=== PATIENT | female | born 1955 | race Caucasian/White ===

== ENCOUNTER 2018-02-13 08:02 | Day surgery (SDC) | payer OTHER, SELFPAY ==
[2018-02-02 14:06] VITALS: BMI 41.9
[2018-02-13 08:22] VITALS: BP 162/95; PULSE 78; RESP 16; TEMP 36.6; O2SAT 98; BMI 42.0
--- NOTE | 2018-02-13 08:55 | OP.ENDO_ITS ---
Patient Name: Melissa Solares Procedure Date: 02/13/2018 8:31 AM Date of : 1955 Age: 62 Procedure: Upper GI endoscopy Indications: Abdominal pain in the right upper quadrant, Abnormal ultrasound of the GI tract Providers: Haja Young MD Referring MD: Haja Young MD Medicines: See the Anesthesia note for documentation of the administered medications Patient Profile: This is a 62 year old female. Refer to note in patient chart for documentation of history and physical. Complications: No immediate complications. Procedure: Pre-Anesthesia Assessment: - Prior to the procedure, a History and Physical was performed, and patient medications and allergies were reviewed. The patient's tolerance of previous anesthesia was also reviewed. The risks and benefits of the procedure and the sedation options and risks were discussed with the patient. All questions were answered, and informed consent was obtained. Prior Anticoagulants: The patient has taken no previous anticoagulant or antiplatelet agents. ASA Grade Assessment: II - A patient with mild systemic disease. After reviewing the risks and benefits, the patient was deemed in satisfactory condition to undergo the procedure. After obtaining informed consent, the endoscope was passed under direct vision. Throughout the procedure, the patient's blood pressure, pulse, and oxygen saturations were monitored continuously. The gastroscope was introduced through the mouth, and advanced to the second part of duodenum. The upper GI endoscopy was accomplished without difficulty. The patient tolerated the procedure well. Scope In: 8:48:46 AM Scope Out: 8:51:09 AM Total Procedure Duration Time 0 hours 2 minutes 23 seconds Findings: The examined esophagus was normal. No biopsies or other specimens were collected for this exam. Localized mild inflammation characterized by erythema was found in the gastric antrum. Biopsies were taken with a cold forceps for Helicobacter pylori testing. The examined duodenum was normal. No biopsies or other specimens were collected for this exam. Impression: - Normal esophagus. No specimens collected. - Gastritis. Biopsied. - Normal examined duodenum. No specimens collected. Recommendation: - Discharge patient to home. - Resume previous diet. - Continue present medications. - Await pathology results. - Repeat upper endoscopy (date not yet determined) for surveillance. - Return to my office in 1 week. Procedure Code(s): --- Professional --- 66000, Esophagogastroduodenoscopy, flexible, transoral; with biopsy, single or multiple Diagnosis Code(s): --- Professional --- K29.70, Gastritis, unspecified, without bleeding R10.11, Right upper quadrant pain R93.3, Abnormal findings on diagnostic imaging of other parts of digestive tract CPT copyright 2017 [employer]. All rights reserved. The codes documented in this report are preliminary and upon death surveys coder review may be revised to meet current compliance requirements. MD Haja Bender MD 02/13/2018 8:54:41 AM This report has been signed electronically. Number of Addenda: 0 Note Initiated On: 02/13/2018 8:31 AM
[2018-02-13 08:56] VITALS: BP 160/103; BP 162/95; PULSE 87; RESP 16; TEMP 36.8; O2SAT 95
[2018-02-13 09:00] VITALS: BP 119/79; BP 162/95; PULSE 76; RESP 16; O2SAT 93
--- NOTE | 2018-02-13 09:00 | IMM_PTH ---
PATIENT: CHULA ROSE LOC: EN U#:[id number] AGE/SX: 62/F ROOM: RE02/13/[address]: Dr. Haja Young MD : 1955 BED: DIS: 02/13/2018 SPEC #: [id number] RECD: 02/15/18 07:49 STATUS: ELIEZER RERobert #: [id number] CHUN: 02/13/18 09:[address]: Haja Young DEPT: IMMUNOHISTOCHEMISTRY RECD BY: Chapis Echeverria ENTERED: 02/15/18 07:50 SP TYPE: IMMUNO OTHR DR: Dr. Papi Catalan MD Tissues: Stomach, NOS Procedures: H Pylori (initial) PHYSICIAN & INSTITUTION [place] [id number] SPECIMEN INFORMATION: Tissue Source: Gastric antrum Clinical Info: Right upper quadrant abdominal pain Specimen Number: [id number] CPT code: 60611 METHODOLOGY: Deparaffinized sections of prefer/formalin-fixed tissue or PAP/DQ stained slides are incubated with monoclonal/polyclonal antibodies/oligonucleotide probes. Localization is made via biotin free immunoperoxidase method. Appropriate controls are performed and reacted as expected. Results on target cell population are indicated in the following table: RESULTS: ANTIBODY / CLONE RESULT H Pylori (polyclonal) negative These tests were developed and their performance characteristics determined by [facility]. They may not have been cleared or approved by the U.S. Food and Drug Administration. The FDA has determined that such clearance or approval is not necessary. INTERPRETATION: Gastric antrum, biopsy: Negative for Helicobacter pylori organisms. SJ:shane 02/15/18
--- NOTE | 2018-02-13 09:00 | GASB_PTH ---
PATIENT: CHULA ROSE LOC: EN U#:[id number] AGE/SX: 62/F ROOM: RE02/13/[address]: Dr. Haja Young MD : 1955 BED: DIS: 02/13/2018 SPEC #: [id number] RECD: 02/13/18 09:09 STATUS: ELIEZER WILY #: [id number] CHUN: 02/13/18 09:[address]: Haja Young DEPT: SURGICAL PATHOLOGY RECD BY: Darryl Starr ENTERED: 02/13/18 11:54 SP TYPE: Gastric Bx OTHR DR: Dr. Papi Catalan MD Tissues: Gastric mucous membrane Procedures: Surgery Specimen Level IV HEADER OPERATION: EGD ([facility] [place]) PRE-OP DIAGNOSIS: Right upper quadrant abdominal pain TISSUE SUBMITTED: Gastric antrum, H. pylori and path MICROSCOPIC DIAGNOSIS Gastric antrum, biopsy: Mild gastritis. See microscopic description and comment. SJ:shane 02/15/18 COMMENT The results of immunohistochemistry for Helicobacter pylori will be reported separately ([id number]). MICROSCOPIC DESCRIPTION Slides are reviewed. The specimen shows fragments of gastric mucosa with chronic inflammatory cell infiltrates in the lamina propria consisting of lymphocytes and plasma cells, consistent with mild chronic gastritis. GROSS DESCRIPTION Received in fixative is one container labeled with the patient's name and designated gastric antrum. The specimen consists of two irregular fragments of light bassett soft tissue that in aggregate measure 0.3 x 0.2 x 0.1 cm. The specimen is totally submitted in one cassette. / AM:shane 02/13/18 TC:3 CPT: 51636
[2018-02-13 09:05] VITALS: BP 145/87; BP 162/95; PULSE 77; RESP 16; O2SAT 95
[2018-02-13 09:15] VITALS: BP 153/90; BP 162/95; PULSE 74; RESP 16; TEMP 36.6; O2SAT 95
[2018-02-13 09:34] VITALS: BP 162/95
== END 2018-02-13 09:51 | disposition home or self-care (01) ==
LOC: EN 08:02 → AC 08:03
PROVIDERS: Family Provider Family Medicine; PCP Family Medicine; Referring Provider Surgery; Visit Provider Surgery
PROC: 0DJ08ZZ Inspection of Upper Intestinal Tract, Via Natural or Artificial Opening Endoscopic (ICD-10-PCS; CPT 43235; principal; 2018-02-13 08:55)
DX: K29.70 Gastritis, unspecified, without bleeding (principal); K82.4 Cholesterolosis of gallbladder; K21.9 Gastro-esophageal reflux disease without esophagitis; E66.01 Morbid (severe) obesity due to excess calories; Z68.41 Body mass index [BMI] 40.0-44.9, adult; M06.4 Inflammatory polyarthropathy; I10 Essential (primary) hypertension; Z85.42 Personal history of malignant neoplasm of other parts of uterus; Z86.73 Personal history of transient ischemic attack (TIA), and cerebral infarction without residual deficits; Z79.82 Long term (current) use of aspirin; Z79.899 Other long term (current) drug therapy
CPT/HCPCS: 43239; 88305; 88342; J7120

== ENCOUNTER 2018-03-03 14:47 | Emergency (ER) | payer OTHER, SELFPAY ==
[2018-03-03 14:48] VITALS: BP 193/113; PULSE 101; RESP 18; TEMP 36.3; O2SAT 97; BMI 41.3
--- NOTE | 2018-03-03 15:04 | EKG12_ITS ---
Test Reason : PALPS Blood Pressure : / mmHG Vent. Rate : 088 BPM Atrial Rate : 088 BPM P-R Int : 144 ms QRS Dur : 078 ms QT Int : 354 ms P-R-T Axes : 054 006 035 degrees QTc Int : 428 ms Sinus rhythm with Premature atrial complexes Otherwise normal ECG Confirmed by ALEXEY ESPINO, YOAN ([id number]), supervising film or videotape editor VICKEY ELENA ([id number]) on 03/06/2018 9:44:19 AM Referred By: MARGY Confirmed By:YOAN BLACKBURN MD
--- NOTE | 2018-03-03 15:10 | RAD_ITS ---
STUDY: X-RAY CHEST REASON FOR EXAM: Female, 62 years old. Palpitations. TECHNIQUE: Single AP portable view of the chest. COMPARISON: Comparison is made with prior study dated May 05, 2015. FINDINGS: EKG electrodes are seen. The lungs are clear and expanded. Scattered calcified granuloma. There is no demonstrated pleural abnormality. Normal size heart. Normal mediastinum and forrest. Normal visualized pulmonary arteries. Normal visualized aortic arch and descending thoracic aorta. There are degenerative changes of the visualized thoracic spine. Normal visualized ribs, clavicles, and shoulders. There is no demonstrated abnormality of the visualized soft tissue structures of the upper abdomen. RAD/Chest 1 View (Portable) IMPRESSION: Normal x-ray examination of the chest. Electronically Signed: Semaj Begum MD at 15:29 EST Tel [phone], Service support ,
--- NOTE | 2018-03-03 15:10 | ED.VISSUMM ---
- ER Visit Summary Date of Service: 03/03/18 Chief Complaint: Palpitations History of Present Illness: The patient is a 62 F history of hypertension. No prior thyroid disease. Chest pain. She denies any significant shortness of breath. Week. She denies any fever. She denies any nausea, vomiting, diarrhea or melena. Physical Examination:. Pulse ox is 97% on room air. H EENT exam unremarkable. Neck nontender. Lungs clear to auscultation bilaterally. Heart regular rate and rhythm rate about 95. She does have an occasional PAC's on the monitor. No murmur. Abdomen soft and nontender. Normal bowel sounds. No peritoneal signs. Moving all 4 extremities. Calves nontender without edema. Neurologically she is awake alert with no focal motor deficits. Test Results: Chest x-ray one view portable no acute abnormality read both by myself the radiologist. EKG sinus rhythm rate of 88 with PACs. CBC normal with a white count 8. Hemoglobin 13. Chemistries normal with normal creatinine and gap. Troponin normal. Emergency Department Course and Treatment: Patient undergo cardiac workup. Treatment Plan: Repeat exam patient is doing well at 1549. Currently symptom-free. Discharged home. Follow-up as an outpatient. Disposition: Discharge Impression: Acute palpitations secondary to premature atrial contractions This note was generated with [employer] dictation software. It may contain incorrect words, spelling, and punctuation that were not noted in review of the chart prior to signing ED Disposition - Plan for ED Patient: Chief Complaint: Palpitations Referrals: Papi Catalan MD [Primary Care Provider] -
[2018-03-03 15:12] VITALS: O2SAT 100
--- NOTE | 2018-03-03 15:13 | ED.DCSUM_ITS ---
- ER Visit Summary Date of Service: 03/03/18 Chief Complaint: Palpitations History of Present Illness: The patient is a 62 F history of hypertension. No prior thyroid disease. Chest pain. She denies any significant shortness of breath. Week. She denies any fever. She denies any nausea, vomiting, diarrhea or melena. Physical Examination:. Pulse ox is 97% on room air. H EENT exam unremarkable. Neck nontender. Lungs clear to auscultation bilaterally. Heart regular rate an d rhythm rate about 95. She does have an occasional PAC's on the monitor. No murmur. Abdomen soft and nontender. Normal bowel sounds. No peritoneal signs. Moving all 4 extremities. Calves nontender without edema. Neurologically she is awake alert with no focal motor deficits. Test Results: Chest x-ray one view portable no acute abnormality read both by myself the radiologist. EKG sinus rhythm rate of 88 with PACs. CBC normal with a white count 8. Hemoglobin 13. Chemistries normal with normal creatinine and gap. Troponin normal. Emergency Department Course and Treatment: Patient undergo cardiac workup. Treatment Plan: Repeat exam patient is doing well at 1549. Currently symptom- free. Discharged home. Follow-up as an outpatient. Disposition: Discharge Impression: Acute palpitations secondary to premature atrial contractions This note was generated with [employer] dictation software. It may contain incorrect words, spelling, and punctuation that were not noted in review of the chart prior to signing ED Disposition - Plan for ED Patient: Chief Complaint: Palpitations Referrals: Papi Catalan MD [Primary Care Provider] -
[2018-03-03 15:21] LABS: Absolute Lymphocyte Count 2.53 X10^3/ul (0.83-4.51); Absolute Neutrophil Count 4.9 X10^3/uL (2.0-7.7); Basophil# 0.04 X10^3/uL; Basophil% 0.5 % (0-1); Eosinophil# 0.15 X10^3/uL; Eosinophils% 1.8 % (0-5); Hematocrit 42.1 % (37-47); Hemoglobin 13.2 g/dl (12.0-15.0); Lymphocyte # 2.53 X10^3/ul (4.0); Lymphocyte % 29.6 % (19-41); Mean Corp Hgb Conc 31.4 g/gl (32-36); Mean Corpuscular Hgb 27.6 pg (27.0-32.0); Mean Corpuscular Volume 88.1 fL (81-99); Mean Platelet Vol. 10.6 fl (6.2-12.0); Monocyte# 0.86 X10^3/uL; Monocyte% 10.1 % (0-10); Neutrophil # 4.94 X10^3/uL (2.7-7.7); Neutrophil % 57.8 % (47-70); Platelet Count 339 K/mm3 (150-450); RBC Distribution Width CV 13.6 % (11.6-14.6); RBC Distribution Width SD 43.7 fl (35.1-43.9); Red Blood Count 4.78 M/mm3 (4.2-5.4); White Blood Count 8.5 K/mm3 (4.4-11.0)
[2018-03-03 15:22] LABS: POSITIVE COUNT NO; POSITIVE DIFFERENTIAL NO; POSITIVE MORPHOLOGY NO
[2018-03-03 15:37] LABS: Anion Gap 8 (5-15); BUN 20 mg/dL (7-18); BUN/Creat Ratio 23.6 RATIO (10-20); Calcium,Total 8.3 mg/dL (8.5-10.1); Chloride 106 mmol/L (98-107); Creatinine, Serum 0.85 mg/dL (0.55-1.02); EST Glomerular Filtration Rate 72 mL/min (>60); Est Glom Filt Rate - Afr Amer 87 mL/min (>60); Estimated Creatinine Clearance 62.59 ml/min; Glucose 93 mg/dL (74-106); Potassium 3.8 mmol/L (3.5-5.1); Sodium Level 141 mmol/L (136-145)
--- NOTE | 2018-03-03 15:51 | ED.DEP ---
ED Disposition - Plan for ED Patient: Disposition: Home or Assisted Living Chief Complaint: Palpitations Instructions: ED Palpitations Referrals: Papi Catalan MD [Primary Care Provider] - As Needed Additional Instructions: Your palpitations are caused by premature atrial beats. All your labs, EKG and chest x-ray were normal. Follow-up with your primary care physician as needed.
[2018-03-03 16:12] VITALS: BP 146/106; PULSE 89; RESP 16; O2SAT 96
--- NOTE | 2018-03-03 16:12 | ED.RN ---
pt given written and verbal discharge instructions and home going instructions. pt signs permission for release of information for lab results. pt verbalizes understanding and denies any further questions. pt iv d/c and covered with 2x2 gauze and paper tape. pt dresses self and ambulates out of dept with any assistance needed. pt to return to ed for any new or worsened sx, and follow up with primary doctor.
--- OUTSIDE RECORDS SUMMARY | 2018-05-08 05:35 | XMS RPT_ITS ---
:1955 Author Organization [place] Support Name Relationship Address Phone [employer] Unavailable [address] + [place] [address] BLAZE ROSE Unavailable [address] + [place] [address] MILTON RUSSEL Unavailable Unavailable + [place] [address] [employer] Unavailable [address] + [place] [address] BLAZE ROSE Unavailable [address] + [place] [address] LULUMARIMAR, RUSSEL Unavailable Unavailable + [place] [address] [employer] Unavailable [address] + [place] [address] BLAZE ROSE Unavailable [address] + [place] [address] MILTON, RUSSEL Unavailable Unavailable + [place] [address] [employer] Unavailable [address] + [place] [address] BLAZE ROSE Unavailable [address] + [place] [address] BLAZE ROSE Unavailable Unavailable + BLAZE ROSE Unavailable Unavailable + BLA[place] ROSE Unavailable Unavailable Unavailable CHRISTINA ROSE Unavailable Unavailable Unavailable VANNESA ROSEE Unavailable [address] + [place] [address] [employer] Unavailable [address] + [place] [address] BLAZE ROSE Unavailable [address] + [place] [address] [employer] Unavailable [address] + [place] [address] BLA[place] ROSE Unavailable [address] + [place] [address] [employer] Unavailable Unavailable Unavailable BLAZE ROSE Unavailable Unavailable + [employer] Unavailable [address] + [place] [address] BLAZE ROSE Unavailable [address] [phone] [place] [address] BLAZE ROSE Unavailable Unavailable Unavailable GONGMARIMAR CHRISTINA Unavailable Unavailable Unavailable GONGVANNESA MINAYAE Unavailable [address] + [place] [address] CONTACTS, NO Unavailable Unavailable + [employer] Unavailable [address] + [place] [address] BROOKSLaurenBLAZE MINAYA Unavailable [address] [phone] [place] [address] Care Team Providers Name Role Phone Haja Young Attending Unavailable GOMES, DANIE O Referring Unavailable Haja Young Attending Unavailable Haja Young Referring Unavailable GOMES, DANIE O Primary Care Unavailable Haja Young Attending Unavailable GOMES, DANIE Jolene Primary Care Unavailable Johnnie Velarde Attending Unavailable Devonkarus, Jimmie Attending Unavailable GOMES, DANIE Jolene Primary Care Unavailable Isckarus, Mansour Referring Unavailable Isckarus, Mansour Attending Unavailable GOMES, DANIE O Primary Care Unavailable Isckarus, Mansour Consulting Unavailable Lashanda Fernandes Attending Unavailable GOMES, DANIE O Referring Unavailable Isckarus, Mansour Attending Unavailable GOMES, DANIE O Primary Care Unavailable Pio, Mansour Consulting Unavailable DOT RIZZO Attending Unavailable GOMES, DANIE Primary Care Unavailable BLAZE THAPA Referring Unavailable DOT RIZZO Attending Unavailable GOMES, DANIE Primary Care Unavailable BLAZE THAPA Referring Unavailable DOT DOTY Attending Unavailable GABRIELLE OCONNELL Attending Unavailable DANIE GOMES Primary Care Unavailable DANIE GOMES Admitting Unavailable DOT DOTY Attending Unavailable DANIE GOMES Referring Unavailable GOMES DANIE PETER Primary Care Unavailable REZA OLIVERA Attending Unavailable REZA OLIVERA Referring Unavailable REZA OLIVERA Attending Unavailable Dr. Dot Doty Admitting Unavailable Dr. Dot Doty Attending Unavailable Arturo, Sakina Do Attending Unavailable Gomes, Danie Primary Care Unavailable Muskegon, Sakina D Admitting Unavailable [place], Sakina D Admitting Unavailable Arturo, Sakina D Attending Unavailable Gomes, Danie Primary Care Unavailable Arturo, Sakina D Admitting Unavailable [place], Sakina D Attending Unavailable Gomes, Danie Primary Care Unavailable Jose Juan Fraire Admitting Unavailable Jose Juan Fraire Attending Unavailable Gomes, Danie Primary Care Unavailable Gomes, Danie Attending Unavailable Gomes, Danie Primary Care Unavailable Gomes, Danie Admitting Unavailable Gomes, Danie Attending Unavailable Gomes, Danie Primary Care Unavailable Gomes, Danie Admitting Unavailable Gomes, Danie Admitting Unavailable Gomes, Danie Attending Unavailable Gomes, Danie Primary Care Unavailable Gomes, Danie Attending Unavailable Gomes, Danie Primary Care Unavailable Gomes, Danie Admitting Unavailable Gomes, Danie Attending Unavailable Gomes, Danie Primary Care Unavailable Gomes, Danie Consulting Unavailable Gomes, Danie Attending Unavailable Gomes, Danie Primary Care Unavailable Gomes, Danie Admitting Unavailable Gomes, Danie Attending Unavailable Gomes, Danie Primary Care Unavailable Gomes, Danie Primary Care Unavailable Gomes, Danie Admitting Unavailable Gomes, Danie Attending Unavailable PROBLEMS PROBLEMS DATE TYPE CONDITION / CODE ATTENDING STATUS SOURCE 02/27/2018 Unknown R10.11 - Right Haja Young Active [facility] upper quadrant pain Community / R10.11(ICD-10) Hospital Repository 02/27/2018 Unknown R93.3 - Abnormal Haja Young Active [facility] findings on Community diagnostic imaging Hospital of other parts of Repository digestive tract / R93.3(ICD-10) 02/27/2018 Unknown K29.70 - Gastritis, Haja Young Active [facility] unspecified, Community without bleeding / Hospital K29.70(ICD-10) Repository 12/09/2017 Admitting Follow-up / 145() DOT RIZZO Active [place] [facility] Repository 12/09/2017 Admitting Endometrial Cancer O'DOT COVARRUBIAS [facility] State diagnosis / 334() [facility] Repository 12/07/2017 Unknown C54.1 - Malignant Isckarus, Active [facility] neoplasm of [facility] endometrium / Hospital C54.1(ICD-10) Repository 11/17/2017 Admitting Encounter for CATHYDNICKDOT [facility] One diagnosis general adult FR[facility]COISE Repository medical examination without abnormal findings / Z00.00(ICD-10) 11/17/2017 Admitting Pain in unspecified STADNICK [facility] diagnosis foot / [place] Three M79.673(ICD-10) Repository 11/17/2017 Admitting Other chronic pain CATHYDNICKDOT [facility] diagnosis / G89.29(ICD-10) [place] Three Repository 11/17/2017 Admitting Other specified STADNICK, DOT [facility] diagnosis abnormal FRANCOISE Three immunological Repository findings in serum / R76.8(ICD-10) 11/17/2017 Admitting Myalgia, STADNICK, DOT [facility] diagnosis unspecified site / FRANCOISE Three M79.10(ICD-10) Repository 11/17/2017 Admitting Sicca syndrome, CATHYDNICK, DOT [facility] diagnosis unspecified / FRANCOISE Three M35.00(ICD-10) Repository PROCEDURES PROCEDURES No Procedure Records FoundRESULTS RESULTS 12 LEAD ELECTROCARDIOGRAM Observed: 03/06/2018 Status: F Source: [place] 9:44 AM [facility] REPOSITORY [facility] Cardiovascular Services [address] [place] [address] 12 Lead EKG 03/03/18 1459 MR#: [id number] Acct: [id number] Name: MELISSA ROSE Rep #: [id number] : 1955 62 From: Kieran Ruiz MD Attending Dr: Status: DEP ER Ordering Dr: Johnnie Velarde MD Date: 03/03/18 Location: ED Sex: F C Admitted: Test Reason : PALPS Blood Pressure : / mmHG Vent. Rate : 088 BPM Atrial Rate : 088 BPM P-R Int : 144 ms QRS Dur : 078 ms QT Int : 354 ms P-R-T Axes : 054 006 035 degrees QTc Int : 428 ms Sinus rhythm with Premature atrial complexes Otherwise normal ECG Confirmed by KIERAN RUIZ MD ([id number]), avid editor VICKEY ELENA ([id number]) on 03/06/2018 9:44:19 AM Referred By: MARGY Confirmed By:KIERAN RUIZ MD 03/06/18 0944 Date Kieran Ruiz MD CC: Johnnie Velarde MD; Danie Gomes MD Signed DISCHARGE INSTRUCTION Observed: 03/04/2018 Status: F Source: [place] 12:00 AM [facility] Medical Records Department [address] [place] [address] Discharge Instruction 03/03/18 1551 MR#: [id number] Acct: [id number] Name: MELISSA ROSE Rep #: [id number] : 1955 62 From: Johnnie Velarde MD PCP: Danie Gomes MD Status: DEP ER ED Disposition - Plan for ED Patient: Disposition: Home or Assisted Living Chief Complaint: Palpitations Instructions: ED Palpitations Referrals: Danie Gomes MD [Primary Care Provider] - As Needed Additional Instructions: Your palpitations are caused by premature atrial beats. All your labs, EKG and chest x-ray were normal. Follow-up with your primary care physician as needed. What to do if you have Problems For any increased pain, shortness of breath, bleeding, nausea or vomiting, chest pain, or any unexpected problems, contact your Primary Care Provider. Call [facility] ([phone]) or report to the closest Emergency Room. Call 911 if necessary. 03/04/18 0000 <Electronically signed by Johnnie Velarde MD> Date Johnnie Velarde MD Cosigner Signature (If Indicated): Date CC: Danie Gomes MD EMERGENCY DEPARTMENT Observed: 03/04/2018 Status: F Source: [place] 12:00 AM [facility] REPOSITORY [facility] Medical Records Department [address] [place] [place] [address] Emergency Department Summary 03/03/18 1510 MR#: [id number] Acct: [id number] Name: MELISSA ROSE Rep #: [id number] : 1955 62 From: Johnnie Velarde MD PCP: Danie Gomes MD Status: DEP ER - ER Visit Summary Date of Service: 03/03/18 Chief Complaint: Palpitations History of Present Illness: The patient is a 62 F history of hypertension. No prior thyroid disease. Chest pain. She denies any significant shortness of breath. Week. She denies any fever. She denies any nausea, vomiting, diarrhea or melena. Physical Examination:. Pulse ox is 97% on room air. H EENT exam unremarkable. Neck nontender. Lungs clear to auscultation bilaterally. Heart regular rate and rhythm rate about 95. She does have an occasional PAC's on the monitor. No murmur. Abdomen soft and nontender. Normal bowel sounds. No peritoneal signs. Moving all 4 extremities. Calves nontender without edema. Neurologically she is awake alert with no focal motor deficits. Test Results: Chest x-ray one view portable no acute abnormality read both by myself the radiologist. EKG sinus rhythm rate of 88 with PACs. CBC normal with a white count 8. Hemoglobin 13. Chemistries normal with normal creatinine and gap. Troponin normal. Emergency Department Course and Treatment: Patient undergo cardiac workup. Treatment Plan: Repeat exam patient is doing well at 1549. Currently symptom-free. Discharged home. Follow-up as an outpatient. Disposition: Discharge Impression: Acute palpitations secondary to premature atrial contractions This note was generated with Sunshineation software. It may contain incorrect words, spelling, and punctuation that were not noted in review of the chart prior to signing ED Disposition - Plan for ED Patient: Chief Complaint: Palpitations Referrals: Danie Gomes MD [Primary Care Provider] - What to do if you have Problems For any increased pain, shortness of breath, bleeding, nausea or vomiting, chest pain, or any unexpected problems, contact your Primary Care Provider. Call [facility] ([phone]) or report to the closest Emergency Room. Call 911 if necessary. 03/04/18 0000 <Electronically signed by Johnnie Velarde MD> Date Johnnie Velarde MD Cosigner Signature (If Indicated): Date CC: Danie Gomes MD CBC W/DIFF, AUTOMATED Collected: 03/03/2018 Status: F Source: [place] 3:10 PM [facility] REPOSITORY TYPE CODE TESTS RESULT OUT OF RANGE REFERENCE UNITS LAB L100.1000 4.4-11.0 K/mm3 Normal WBC 8.5 LAB L100.1200 4.2-5.4 M/mm3 Normal RBC 4.78 LAB L100.1300 12.0-15.0 g/dl Normal HGB 13.2 LAB L100.1400 37-47 % Normal HCT 42.1 LAB L100.1500 81-99 fL Normal MCV 88.1 LAB L100.1600 27.0-32.0 pg Normal MCH 27.6 LAB L100.1700 32-36 g/gl Low MCHC 31.4 LAB L100.1810 11.6-14.6 % Normal RDW CV 13.6 LAB L100.1820 35.1-43.9 fl Normal RDW SD 43.7 LAB L100.1900 150-450 K/mm3 Normal PLT 339 LAB L100.2000 6.2-12.0 fl Normal MPV 10.6 LAB L100.2100 47-70 % Normal NEUT% 57.8 LAB L100.2200 19-41 % Normal LY% 29.6 LAB L100.2300 0-10 % High MONO% 10.1 LAB L100.2400 0-5 % Normal EO% 1.8 LAB L100.2500 0-1 % Normal BASO% 0.5 LAB L100.2550 0.0-0.9 % Normal IM GRAN % 0.200 Result Comment: IG% - Immature Granulocytes (promyelocytes, myelocytes and metamyelocytes) > 1% indicates that a LEFT SHIFT is Present. LAB L100.2620 2.0-7.7 X10 3/uL Normal Absolute Neut 4.9 LAB L100.2720 0.83-4.51 X10 3/ul Normal Absolute Lymph 2.53 Performed By: #### L100.0100 #### [facility] [address] [place], [place], [address] BASIC METABOLIC Collected: 03/03/2018 Status: F Source: [place] PROFILE (BMP) 3:10 PM [facility] REPOSITORY TYPE CODE TESTS RESULT OUT OF RANGE REFERENCE UNITS LAB L501.0100 74-106 mg/dL Normal GLU 93 Result Comment: Please note revised GLUCOSE reference range effective 2017. LAB L501.1000 7-18 mg/dL High BUN 20 LAB L501.1100 0.55-1.02 mg/dL Normal CREAT,SERUM 0.85 Result Comment: The validity of the calculated GFR AND GFRAA in patients over 70 years has not been determined. Clinical correlation is essential. LAB L501.1110 >60 mL/min Normal EST GFR 72 Result Comment: Non- GFR Calc LAB L501.1115 >60 mL/min Normal EST GFR - AA 87 Result Comment: GFR Calc LAB L501.1255 ml/min Normal Estimated CRCL 62.59 LAB L501.1300 10-20 RATIO High BUN/CRE 23.6 LAB L501.2200 8.5-10 mg/dL Low .1 CA 8.3 LAB L501.5300 136-14 mmol/L Normal 5 NA 141 LAB L501.5600 3.5-5. mmol/L Normal 1 K 3.8 LAB L501.5900 98-107 mmol/L Normal CL 106 LAB L501.6100 21.0-3 mmol/L Normal 2.0 CO2 27.0 LAB L501.6200 5-15 Normal GAP 8 Performed By: #### L500.2500, L501.4010 #### [facility] [address] [place], [address] TROPONIN-I Collected: 03/03/2018 Status: F Source: [place] 3:10 PM [facility] REPOSITORY TYPE CODE TESTS RESULT OUT OF RANGE REFERENCE UNITS LAB L501.4010 <0.045 ng/mL Normal < 0.015 TROPONIN-I Result Comment: TROPONIN-I EXPECTED VALUES <0.045 Negative 0.045 - 0.590 Consistent with Cardiac Damage > OR = 0.600 Critical Value Not every elevated troponin is indicative of HI. These values should be used with clinical judgement in examining the patient's clinical picture for diagnosis. To establish a diagnosis of HI versus myocardial injury, there must be a demonstrated rise and/or fall in the troponin values, in addition to ischemic symptoms, EKG changes, new regional wall motion abnormality, and/or angiographical evidence. PLEASE NOTE: REFERENCE RANGES EDITED 17 Performed By: #### L500.2500, L501.4010 #### [facility] [address] [place], [address] CHEST 1 VIEW Observed: 03/03/2018 Status: F Source: [place] (PORTABLE) 3:05 PM [facility] REPOSITORY [facility] Imaging Services [address] [facility] [place] [address] Chest 1 View (Portable) MR#: [id number] Acct: [id number] Name: MELISSA ROSE Rep #: [id number] : 1955 F 62 From: Semaj Begum MD PCP: Danie Gomes MD Status: PRE ER Study: Chest 1 View (Portable) Date of Exam: 03/03/18 Exam# [id number] Ordering Dr: Johnnie Velarde MD STUDY: X-RAY CHEST REASON FOR EXAM: Female, 62 years old. Palpitations. TECHNIQUE: Single AP portable view of the chest. COMPARISON: Comparison is made with prior study dated May 05, 2015. FINDINGS: EKG electrodes are seen. The lungs are clear and expanded. Scattered calcified granuloma. There is no demonstrated pleural abnormality. Normal size heart. Normal mediastinum and forrest. Normal visualized pulmonary arteries. Normal visualized aortic arch and descending thoracic aorta. There are degenerative changes of the visualized thoracic spine. Normal visualized ribs, clavicles, and shoulders. There is no demonstrated abnormality of the visualized soft tissue structures of the upper abdomen. RAD/Chest 1 View (Portable) IMPRESSION: Normal x-ray examination of the chest. Electronically Signed: Semaj Begum MD at 15:29 EST Tel [phone], Service support , CC: Johnnie Velarde MD; Danie Gomes MD Server Systems Administrator: Signed PROGRESS Observed: 02/27/2018 Status: COMPLETED Source: [place] 3:00 PM [facility] [place] REPOSITORY HNO ID: [id number] Author: Reza Olivera Service: (none) Author Type: Physician Type: Progress Notes Filed: 02/27/2018 3:35 PM Note Text: [facility] FOLLOW-UP EVALUATION The consultation is entered using voice recognition technology and may contain inaccurate syntax or word sense. Referring: Self Subjective: 62-year-old with a primary complaint of low back pain (lower extremity symptoms have resolved in entirety, on gabapentin 300 mg twice a day; side effects develop with dosages above this) and a lesser complaint of fairly diffuse neck and back pain and bilateral foot pain (the above chronic). The patient has utilized meloxicam with modest and a fit, no reported side effects. She denies specific motor or sensory changes. She denies recent slip and fall or under injuries. A limited home exercise program is performed mainly consisting of stretching. Imaging: IMPRESSION: 1. ?Multilevel degenerative disc, bone and facet changes with moderate left foraminal compromise at L3/4 and L4/5. ?Overall appearance essentially unchanged when compared to previous examination of Server Systems Administrator: JOSELYN ? Transcribe Date/Time: Jun 25 2016 12:41P Dictated by : JANESSA ROY MD This examination was interpreted and the report reviewed and electronically signed by: JANESSA ROY MD on Jun 25 2016 12:52PM ?EST Results-Findings * * *Final Report* * * DATE OF EXAM: Jun 25 2016 12:30PM ? WRM ? 0303 ?- ?MRI LUMBAR SPINE WO IVCON ?/ PROCEDURE REASON: multiple diagnoses ?? ? * * * * Physician Interpretation * * * * RESULT: HISTORY: ?Low back pain unresponsive to conservative management, history of uterine malignancy COMPARISON: Today's study is compared to previous exam of 01/27/2009 EXAMINATION: Routine lumbosacral spine protocol without gadolinium. RESULTS: Counting reference: ?Lumbosacral junction. ?For the purposes of this report, L5S1 is considered the last lumbar type disc space. Alignment: ? ?There is minimal retrolisthesis of L2 on L3.. Bone marrow signal/fracture: ? ? ? No evidence of pathologic marrow infiltration. ?No evidence of prior fracture. Conus: ? ?The conus is within normal limits of signal intensity and morphology. ?The conus terminates normally at L1. Paraspinal soft tissues: ? ?Paraspinal soft tissues are unremarkable. Lower thoracic spine: ?Visualized lower thoracic canal and foramina are patent. Incidental note is made of several cystlike masses associated with both kidneys. ?For those most likely represent benign renal cysts, they are not fully characterized by this study. ?In addition, there is a small cystlike mass associated with the liver appreciated on the haste image. ? This is less than a centimeter in size and too small to characterize. L1-L2: ? ?There is broad-based degenerative disc bulging. ?Canal and foramina are patent. L2-L3: ? ?There is broad-based degenerative disc bulging. ?There are bilateral degenerative facet changes. ?Canal and foramina are patent. L3-L4: ? ?There is broad-based degenerative disc bulging. ?There are bilateral degenerative facet changes. ?There is mild right and moderate left foraminal compromise. ?Dimensions of the central canal are adequate. L4-L5: ? ?There is broad-based degenerative disc bulging. ?There are bilateral degenerative facet changes. ?There is mild right and moderate left foraminal compromise. ?There is mild central canal narrowing. L5-S1: ? ?There is marked degenerative disc space narrowing. ?There is mild broad-based disc bulging with a shallow broad-based central disc protrusion superimposed. ?There is bony osteophytosis of the vertebral body margins. ?Canal and foramina are patent. Sacrum and iliac wings: ? ?Visible sacrum and iliac wings are normal. ? Presacral soft tissues within normal limits. ? ? IMPRESSION: Degenerative changes involving the lower lumbar spine, most significant at the L5-S1 level. Server Systems Administrator: PSCB ? Transcribe Date/Time: Dec ?5:21P Dictated by : CHRISTOPHER BURNS MD This examination was interpreted and the report reviewed and electronically signed by: CHRISTOPHER BURNS MD on Dec ?5:23PM ?EST Results-Findings * * *Final Report* * * DATE OF EXAM: Dec ?2:50PM ? STX ? 1446 ?- ?XR LUMBAR AP/LAT/OBL/L5S1 ?/ PROCEDURE REASON: multiple diagnoses ?? ? * * * * Physician Interpretation * * * * RESULT: Examination: ?XR LUMBAR AP/LAT/OBL/L5S1 12/24/2015 History: ? lower back pain Spondylosis without myelopathy or radiculopathy, lumbosacral region Radiculopathy, site unspecified Technique: ? XR LUMBAR AP/LAT/OBL/L5S1 -- NOT APPLICABLE ? ? with 5 views on 5 images Comparison: None available RESULT: There are 5 lumbar type vertebral bodies. No acute fracture or traumatic malalignment. There is narrowing of the intervertebral disc space at the L5-S1 level and to a lesser extent the L4-L5 level. The remaining intervertebral disc spaces and vertebral body heights are maintained. The pedicles are preserved on the frontal view. The sacroiliac joints are intact bilaterally. OARRS Report: Reviewed Pain Panel/Toxicology Available: No ALLERGIES: Adhesive; Latex; Sulfa (Sulfonamide Antibiotics) Current Outpatient Medications: Current Outpatient Prescriptions: gabapentin (NEURONTIN) 600 mg tablet 1/2 tablet at HS for 4 days then increase to1/2 tablet BID for 4 days then increase to 1/2 tablet TID thereafter baclofen (LIORESAL) 10 mg tablet Take 10 mg by mouth three times daily. meloxicam (MOBIC) 15 mg tablet Take 1 tab daily as needed aspirin, enteric coated (ADULT LOW DOSE ASPIRIN) 81 mg EC tablet Take 1 tablet by mouth once daily. LISINOPRIL-HYDROCHLOROTHIAZIDE ORAL None Entered No current facility-administered medications for this visit. Current Anticoagulant Therapy: No Past Medical History: PAST MEDICAL HISTORY Diagnosis Date - Asthma - Fibromyalgia - Hypertension - Inflammatory polyarthropathy (HCC) - Snoring - Syncope - Uterine cancer (HCC) Past Surgical History: PAST SURGICAL HISTORY Procedure Laterality Date - APPENDECTOMY HX - HYSTERECTOMY HX - PAST SURGICAL HISTORY OF right TKR - 04/2011 Review of Systems: General: Negative for weight loss, malaise or fevers. HEENT: Negative for epistaxis, frequent/significant headaches, changes in hearing or vision. Neck: Negative for lumps, goiter, pain or significant neck swelling. Cardiovascular: Negative for chest pain, palpitations or leg swelling. Respiratory: Negative for shortness of breath, cough or wheezing. GI: Negative for melena, hematochezia or change in bowel habits. : Negative for dysuria, frequency or incontinence. Skin: Negative for lesions, rash or pruritis. Psych: Negative for sleep disturbance, mood disorder or recent psychosocial stressors. Hematology/Lymphology: Negative for easy bruising/bleeding or lymphadenopathy. Endocrine: Negative for heat/cold intolerance, polyuria or polydipsia. All other reviewed and negative other than HPI. Physical Examination: Ht 167.6 cm (5' 6) Wt 115.2 kg (254 lb) BMI 41.00 kg/m? HEENT: No cervical lymphadenopathy. No thyromegaly. Cor: RRR. Peripheral pulses +2/4 in the upper and lower extremities. No peripheral edema is noted. Capillary refills less than 2 seconds.gs: BS equal and CTA. Abdomen: Soft, non-tender. Without masses, organomegaly. Musculoskeletal: Gait is broad-based. The pelvis is anteverted. Strength is symmetric and full in the upper and lower extremities. Lumbar facet joint tenderness is noted at L4-5, L5-S1 bilaterally. Neuro: Sensory examination is intact. No allodynia or hyperalgesia is noted. Clinical Impression: 1. Lumbosacral pain, etiology: Lumbar spondylosis-lumbar facet syndrome-lumbar degenerative disc disease-radicular lower extremity pain Recommendation/Plan: 1. Continue gabapentin 300 mg twice a day. The patient has an existing supply of the medication. 2. Turmeric. Discontinue meloxicam/other NSAIDs. 3. The patient was advised regarding body mechanics, and encourage with respect to consistent performance of her home exercise program. 4. Follow-up when necessary. 5. Outside lab dated 01/02/2016 Creatinine 0.07, eGFR >60 The patient is in agreement with the treatment plan. All questions the patient had were answered at the time of today's visit. Electronically Signed: Reza Olivera DO February 27, 2018 The consultation is to be transmitted via electronic medical record for those providers who practice within [facility] [place] and for those with access to [employer] via MD Connect or via letter. OTONIEL Observed: 02/27/2018 Status: COMPLETED Source: [place] 3:00 PM [facility] REPOSITORY Office Visit (PNMDNA) MELISSA ROSE ([id number]) 1955 F Date Time Provider Department 02/27/18 3:00 PM REZA OLIVERA During your visit today, we recorded the following information about you: Weight Height 115.2 kg 1.676 m Reza Olivera DO 02/27/2018 3:35 PM Signed [facility] FOLLOW-UP EVALUATION The consultation is entered using voice recognition technology and may contain inaccurate syntax or word sense. Referring: Self Subjective: 62-year-old with a primary complaint of low back pain (lower extremity symptoms have resolved in entirety, on gabapentin 300 mg twice a day; side effects develop with dosages above this) and a lesser complaint of fairly diffuse neck and back pain and bilateral foot pain (the above chronic). The patient has utilized meloxicam with modest and a fit, no reported side effects. She denies specific motor or sensory changes. She denies recent slip and fall or under injuries. A limited home exercise program is performed mainly consisting of stretching. Imaging: IMPRESSION: 1. ?Multilevel degenerative disc, bone and facet changes with moderate left foraminal compromise at L3/4 and L4/5. ?Overall appearance essentially unchanged when compared to previous examination of Server Systems Administrator: JOSELYN ? Transcribe Date/Time: Jun 25 2016 12:41P Dictated by : JANESSA ROY MD This examination was interpreted and the report reviewed and electronically signed by: JANESSA ROY MD on Jun 25 2016 12:52PM ?EST Results-Findings * * *Final Report* * * DATE OF EXAM: Jun 25 2016 12:30PM ? WRM ? 0303 ?- ?MRI LUMBAR SPINE WO IVCON ?/ PROCEDURE REASON: multiple diagnoses ?? ? * * * * Physician Interpretation * * * * RESULT: HISTORY: ?Low back pain unresponsive to conservative management, history of uterine malignancy COMPARISON: Today's study is compared to previous exam of 01/27/2009 EXAMINATION: Routine lumbosacral spine protocol without gadolinium. RESULTS: Counting reference: ?Lumbosacral junction. ?For the purposes of this report, L5S1 is considered the last lumbar type disc space. Alignment: ? ?There is minimal retrolisthesis of L2 on L3.. Bone marrow signal/fracture: ? ? ? No evidence of pathologic marrow infiltration. ?No evidence of prior fracture. Conus: ? ?The conus is within normal limits of signal intensity and morphology. ?The conus terminates normally at L1. Paraspinal soft tissues: ? ?Paraspinal soft tissues are unremarkable. Lower thoracic spine: ?Visualized lower thoracic canal and foramina are patent. Incidental note is made of several cystlike masses associated with both kidneys. ?For those most likely represent benign renal cysts, they are not fully characterized by this study. ?In addition, there is a small cystlike mass associated with the liver appreciated on the haste image. ? This is less than a centimeter in size and too small to characterize. L1-L2: ? ?There is broad-based degenerative disc bulging. ?Canal and foramina are patent. L2-L3: ? ?There is broad-based degenerative disc bulging. ?There are bilateral degenerative facet changes. ?Canal and foramina are patent. L3-L4: ? ?There is broad-based degenerative disc bulging. ?There are bilateral degenerative facet changes. ?There is mild right and moderate left foraminal compromise. ?Dimensions of the central canal are adequate. L4-L5: ? ?There is broad-based degenerative disc bulging. ?There are bilateral degenerative facet changes. ?There is mild right and moderate left foraminal compromise. ?There is mild central canal narrowing. L5-S1: ? ?There is marked degenerative disc space narrowing. ?There is mild broad-based disc bulging with a shallow broad-based central disc protrusion superimposed. ?There is bony osteophytosis of the vertebral body margins. ?Canal and foramina are patent. Sacrum and iliac wings: ? ?Visible sacrum and iliac wings are normal. ? Presacral soft tissues within normal limits. ? ? IMPRESSION: Degenerative changes involving the lower lumbar spine, most significant at the L5-S1 level. Server Systems Administrator: JOSELYN ? Transcribe Date/Time: Dec ?5:21P Dictated by : CHRISTOPHER BURNS MD This examination was interpreted and the report reviewed and electronically signed by: CHRISTOPHER BURNS MD on Dec ?5:23PM ?EST Results-Findings * * *Final Report* * * DATE OF EXAM: Dec ?2:50PM ? STX ? 1446 ?- ?XR LUMBAR AP/LAT/OBL/L5S1 ?/ PROCEDURE REASON: multiple diagnoses ?? ? * * * * Physician Interpretation * * * * RESULT: Examination: ?XR LUMBAR AP/LAT/OBL/L5S1 12/24/2015 History: ? lower back pain Spondylosis without myelopathy or radiculopathy, lumbosacral region Radiculopathy, site unspecified Technique: ? XR LUMBAR AP/LAT/OBL/L5S1 -- NOT APPLICABLE ? ? with 5 views on 5 images Comparison: None available RESULT: There are 5 lumbar type vertebral bodies. No acute fracture or traumatic malalignment. There is narrowing of the intervertebral disc space at the L5-S1 level and to a lesser extent the L4-L5 level. The remaining intervertebral disc spaces and vertebral body heights are maintained. The pedicles are preserved on the frontal view. The sacroiliac joints are intact bilaterally. OARRS Report: Reviewed Pain Panel/Toxicology Available: No ALLERGIES: Adhesive; Latex; Sulfa (Sulfonamide Antibiotics) Current Outpatient Medications: Current Outpatient Prescriptions: gabapentin (NEURONTIN) 600 mg tablet 1/2 tablet at HS for 4 days then increase to1/2 tablet BID for 4 days then increase to 1/2 tablet TID thereafter baclofen (LIORESAL) 10 mg tablet Take 10 mg by mouth three times daily. meloxicam (MOBIC) 15 mg tablet Take 1 tab daily as needed aspirin, enteric coated (ADULT LOW DOSE ASPIRIN) 81 mg EC tablet Take 1 tablet by mouth once daily. LISINOPRIL-HYDROCHLOROTHIAZIDE ORAL None Entered No current facility-administered medications for this visit. Current Anticoagulant Therapy: No Past Medical History: PAST MEDICAL HISTORY Diagnosis Date - Asthma - Fibromyalgia - Hypertension - Inflammatory polyarthropathy (HCC) - Snoring - Syncope - Uterine cancer (HCC) Past Surgical History: PAST SURGICAL HISTORY Procedure Laterality Date - APPENDECTOMY HX - HYSTERECTOMY HX - PAST SURGICAL HISTORY OF right TKR - 04/2011 Review of Systems: General: Negative for weight loss, malaise or fevers. HEENT: Negative for epistaxis, frequent/significant headaches, changes in hearing or vision. Neck: Negative for lumps, goiter, pain or significant neck swelling. Cardiovascular: Negative for chest pain, palpitations or leg swelling. Respiratory: Negative for shortness of breath, cough or wheezing. GI: Negative for melena, hematochezia or change in bowel habits. : Negative for dysuria, frequency or incontinence. Skin: Negative for lesions, rash or pruritis. Psych: Negative for sleep disturbance, mood disorder or recent psychosocial stressors. Hematology/Lymphology: Negative for easy bruising/bleeding or lymphadenopathy. Endocrine: Negative for heat/cold intolerance, polyuria or polydipsia. All other reviewed and negative other than HPI. Physical Examination: Ht 167.6 cm (5' 6) Wt 115.2 kg (254 lb) BMI 41.00 kg/m? HEENT: No cervical lymphadenopathy. No thyromegaly. Cor: RRR. Peripheral pulses +2/4 in the upper and lower extremities. No peripheral edema is noted. Capillary refills less than 2 seconds.gs: BS equal and CTA. Abdomen: Soft, non-tender. Without masses, organomegaly. Musculoskeletal: Gait is broad-based. The pelvis is anteverted. Strength is symmetric and full in the upper and lower extremities. Lumbar facet joint tenderness is noted at L4-5, L5-S1 bilaterally. Neuro: Sensory examination is intact. No allodynia or hyperalgesia is noted. Clinical Impression: 1. Lumbosacral pain, etiology: Lumbar spondylosis-lumbar facet syndrome-lumbar degenerative disc disease-radicular lower extremity pain Recommendation/Plan: 1. Continue gabapentin 300 mg twice a day. The patient has an existing supply of the medication. 2. Turmeric. Discontinue meloxicam/other NSAIDs. 3. The patient was advised regarding body mechanics, and encourage with respect to consistent performance of her home exercise program. 4. Follow-up when necessary. 5. Outside lab dated 01/02/2016 Creatinine 0.07, eGFR >60 The patient is in agreement with the treatment plan. All questions the patient had were answered at the time of today's visit. Electronically Signed: Reza Olivera DO February 27, 2018 The consultation is to be transmitted via electronic medical record for those providers who practice within [facility] [place] and for those with access to [employer] via MD Connect or via letter. Rozina Lewis RN 02/27/2018 3:31 PM Signed Stop Mobic Turmeric 500mg daily then increase to twice a day Continue taking gabapentin 1/2 tab twice a day. Do not abruptly stop this medication if you have questions or concerns please call the office. Follow up as needed Referring Provider: SELF [[id number]] Allergies As of Date: 02/27/2018 Noted Allergy Reaction ADHESIVE 06/03/2016 2 - Rash LATEX 06/03/2016 2 - Rash SULFA (SULFONAMIDE ANTIBIOTICS) 02/18/2009 Date Reviewed: 02/27/2018 Reviewed by: Rozina Lewis RN - Fully Assessed Reason for Visit: Low Back Pain [126] Primary Visit Diagnosis:Spondylosis of lumbar region without myelopathy or radiculopathy [M47.816] Other Visit Diagnoses:Lumbar degenerative disc disease [M51.36] Lumbar facet joint syndrome [M47.816] Prescriptions as of 02/27/2018 Sig: BACLOFEN 10 MG TABLET Take 10 mg by mouth three leah* MELOXICAM 15 MG TABLET Take 1 tab daily as needed ASPIRIN 81 MG TABLET,DELAYED * Take 1 tablet by mouth once d* * LISINOPRIL-HYDROCHLOROTHIAZID* None Entered GABAPENTIN 600 MG TABLET 1/2 tablet at HS for 4 days t* Problem List As Of Date 02/27/2018 Noted Resolved Lumbosacral Spondylosis without Myelopathy [M47*INVALID FOR* Lumbar facet joint syndrome [M47.816] INVALID FOR* Lumbar degenerative disc disease [M51.36] INVALID FOR* Other instructions from your clinician: Stop Mobic Turmeric 500mg daily then increase to twice a day Continue taking gabapentin 1/2 tab twice a day. Do not abruptly stop this medication if you have questions or concerns please call the office. Follow up as needed Encounter Status:Closed by REZA OLIVERA DO on 02/27/18 GASTRIC BIOPSY Observed: 02/13/2018 Status: F Source: [place] 9:00 AM [facility] REPOSITORY Patient: MELISSA ROSE : 1955 (62/F) Acct Num: [id number] Phys: Hannah ESPINO,Haja Unit Num: [id number] Loc: EN Specimen: [id number] Received: 02/13/18908 Spec Type: Gastric Bx TISSUES 1 TISSUES: Gastric mucous membrane COMMENT The results of immunohistochemistry for Helicobacter pylori will be reported separately ([id number]). GROSS DESCRIPTION Received in fixative is one container labeled with the patient's name and designated gastric antrum. The specimen consists of two irregular fragments of light bassett soft tissue that in aggregate measure 0.3 x 0.2 x 0.1 cm. The specimen is totally submitted in one cassette. / AM:shane 02/13/18 TC:3 CPT: 92901 HEADER OPERATION: EGD ([facility]) PRE-OP DIAGNOSIS: Right upper quadrant abdominal pain TISSUE SUBMITTED: Gastric antrum, H. pylori and path MICROSCOPIC DESCRIPTION Slides are reviewed. The specimen shows fragments of gastric mucosa with chronic inflammatory cell infiltrates in the lamina propria consisting of lymphocytes and plasma cells, consistent with mild chronic gastritis. MICROSCOPIC DIAGNOSIS Gastric antrum, biopsy: Mild gastritis. See microscopic description and comment. SJ:shane 02/15/18 Signed Roderick Borrero MD 02/15/18 <signature on file> Performed By: #### PGASB #### [facility] [address] [place], [address] IMMUNOHISTOCHEMISTRY Observed: 02/13/2018 Status: F Source: [place] 9:00 AM [facility] REPOSITORY Patient: MELISSA ROSE : 1955 (62/F) Acct Num: [id number] Phys: Hannah ESPINO,Haja Unit Num: [id number] Loc: EN Specimen: [id number] Received: 02/15/18748 Spec Type: IMMUNO TISSUES 1 TISSUES: Stomach, NOS SPECIMEN INFORMATION: Tissue Source: Gastric antrum Clinical Info: Right upper quadrant abdominal pain Specimen Number: [id number] CPT code: 28676 METHODOLOGY: Deparaffinized sections of prefer/formalin-fixed tissue or PAP/DQ stained slides are incubated with monoclonal/polyclonal antibodies/oligonucleotide probes. Localization is made via biotin free immunoperoxidase method. Appropriate controls are performed and reacted as expected. Results on target cell population are indicated in the following table: RESULTS: ANTIBODY / CLONE RESULT H Pylori (polyclonal) negative These tests were developed and their performance characteristics determined by [facility]. They may not have been cleared or approved by the U.S. Food and Drug Administration. The FDA has determined that such clearance or approval is not necessary. INTERPRETATION: Gastric antrum, biopsy: Negative for Helicobacter pylori organisms. SJ:shane 02/15/18 PHYSICIAN AND INSTITUTION [place] [address] Signed Roderick Borrero MD 02/15/18 <signature on file> Performed By: #### PIMM #### [facility] [address] [place] [address]. [place], [place], [address] OPERATIVE REPORT - Observed: 02/13/2018 Status: F Source: [place] [facility] 8:55 AM [facility] REPOSITORY [facility] Medical Records Department [address] [place] [address] Operative Report - Endoscopy MR#: [id number] Acct: [id number] Name: MELISSA ROSE Rep #: [id number] : 1955 62 From: Haja Young MD PCP: Danie Gomes MD Status: REG [facility] Patient Name: Melissa Rose Procedure Date: 02/13/2018 8:31 AM Date of : 1955 Age: 62 Procedure: Upper GI endoscopy Indications: Abdominal pain in the right upper quadrant, Abnormal ultrasound of the GI tract Providers: Haja Young MD Referring MD: Haja Young MD Medicines: See the Anesthesia note for documentation of the administered medications Patient Profile: This is a 62 year old female. Refer to note in patient chart for documentation of history and physical. Complications: No immediate complications. Procedure: Pre-Anesthesia Assessment: - Prior to the procedure, a History and Physical was performed, and patient medications and allergies were reviewed. The patient's tolerance of previous anesthesia was also reviewed. The risks and benefits of the procedure and the sedation options and risks were discussed with the patient. All questions were answered, and informed consent was obtained. Prior Anticoagulants: The patient has taken no previous anticoagulant or antiplatelet agents. ASA Grade Assessment: II - A patient with mild systemic disease. After reviewing the risks and benefits, the patient was deemed in satisfactory condition to undergo the procedure. After obtaining informed consent, the endoscope was passed under direct vision. Throughout the procedure, the patient's blood pressure, pulse, and oxygen saturations were monitored continuously. The gastroscope was introduced through the mouth, and advanced to the second part of duodenum. The upper GI endoscopy was accomplished without difficulty. The patient tolerated the procedure well. Scope In: 8:48:46 AM Scope Out: 8:51:09 AM Total Procedure Duration Time 0 hours 2 minutes 23 seconds Findings: The examined esophagus was normal. No biopsies or other specimens were collected for this exam. Localized mild inflammation characterized by erythema was found in the gastric antrum. Biopsies were taken with a cold forceps for Helicobacter pylori testing. The examined duodenum was normal. No biopsies or other specimens were collected for this exam. Impression: - Normal esophagus. No specimens collected. - Gastritis. Biopsied. - Normal examined duodenum. No specimens collected. Recommendation: - Discharge patient to home. - Resume previous diet. - Continue present medications. - Await pathology results. - Repeat upper endoscopy (date not yet determined) for surveillance. - Return to my office in 1 week. Procedure Code(s): --- Professional --- 31370, Esophagogastroduodenoscopy, flexible, transoral; with biopsy, single or multiple Diagnosis Code(s): --- Professional --- K29.70, Gastritis, unspecified, without bleeding R10.11, Right upper quadrant pain R93.3, Abnormal findings on diagnostic imaging of other parts of digestive tract CPT copyright 2017 [employer]. All rights reserved. The codes documented in this report are preliminary and upon emt b review may be revised to meet current compliance requirements. MD Haja Bender MD 02/13/2018 8:54:41 AM This report has been signed electronically. Number of Addenda: 0 Note Initiated On: 02/13/2018 8:31 AM 02/13/18853 Date Haja Young MD Cosigner Signature: Date (if indicated) CC: Haja Young MD; Danie Gomes MD Date Dictated: 02/13/18830 Date Transcribed: Server Systems Administrator: MARV Signed SURGERY VISIT REPORT Observed: 02/06/2018 Status: F Source: [place] 3:38 PM [facility] REPOSITORY [facility] [address] [place] [address] [address] [place] [address] OFFICE VISIT Date of Service: 02/02/18 MR#: [id number] Acct: [id number] Name: BROOKSMELISSA PAUL Wiliam Rep #: [id number] : 1955 Provider: Haja Young MD Age/Sex: 62/F Location: [facility] Status: Signed Intake Vital Signs02/02/18 Height 5 ft 6 in 02/02/18 Weight: 260 lb Intake Visit Reasons: GALLBLADDER/U/S @CONGREGATIONAL Chief Complaint: Endometrium cancer follow-up Monitoring Manager Required: No Is patient in pain?: No Allergies latex Allergy (Severe, Verified 02/02/18 14:07) Other Sulfa (Sulfonamide Antibiotics) Allergy (Mild, Verified 02/02/18 14:07) Rash adhesive Adverse Reaction (Mild, Verified 02/02/18 14:07) Rash Medications Lisinopril [Zestril] 12.5 mg PO DAILY 05/05/15 [History Confirmed 02/02/18] Aspirin [Aspirin EC] 81 mg PO DAILY 04/08/17 [History Confirmed 02/02/18] Baclofen [Lioresal] 10 mg PO TID PRN 04/08/17 [History Confirmed 02/02/18] Meloxicam [Mobic] 15 mg PO DAILY PRN 04/08/17 [History Confirmed 02/02/18] cholecalciferol (vitamin D3) 50,000 unit capsule 50,000 unit PO QWEEK 02/02/18 [History Confirmed 02/02/18] gabapentin 100 mg capsule 300 mg PO DAILY cap 02/02/18 [History Confirmed 02/02/18] [facility] Medical History Chronic back pain (Chronic) DJD (degenerative joint disease) (Chronic) Gall bladder disease (Chronic) Morbid obesity (Chronic) Endometrium cancer (Chronic) Fibromyalgia (Acute) History of hysterectomy (Acute) Inflammatory polyarthropathy (Acute) Morbid obesity (Acute) Spinal stenosis (Acute) TIA (transient ischemic attack) (Acute) Uterine cancer (Acute) Hypertension (Chronic) Surgical History History of appendectomy (Acute) History of arthroscopy of left knee (Acute) History of tonsillectomy (Acute) History of total right knee replacement (Acute) History of tubal ligation (Acute) history right hammer toe repair (Acute) Family History Mother Diabetes CVA (cerebral vascular accident) Grandfather Diabetes Social History Smoking Status: Never smoker alcohol intake: never substance use type: does not use HPI HPI HPI: MELISSA ROSE, is a 62 F who presents to the office today for evaluation of right upper quadrant abdominal pain. She has tightness and soreness and feels bloated. This pain does go into her back. It is worse with fried foods. This is been going on for 2 years and has been flaring up consistently over the last 2 weeks she had a gallbladder ultrasound which showed the gallbladder having polyps ranging from 2 mm to 5 mm in size. The overall size of the polyps had not significantly changed from her prior ultrasound done in June 2016. The gallbladder wall appeared to be normal with no thickness and there was no pericholecystic fluid. There was no intrahepatic biliary ductal dilatation and the common bile duct measured 4 mm in size. The patient subsequently underwent a HIDA scan with ejection fraction showing ejection fraction of 96.5% ROS General General: Yes fatigue; no weight change, appetite, colon cancer, breast cancer or weakness HEENT HEENT: Yes swollen glands; no difficulty swallowing, eye injury, eye surgery or hoarseness Endo Endocrine: No thyroid disease, diabetes mellitus, thyroid cancer, Hair loss, heat intolerance or cold intolerance Skin Skin: No rash or changing moles Breast Breast: No left breast lump, right breast lump, nipple discharge, breast pain, abnormal mammogram, abnormal US or breast enlargement Musc Musculoskeletal: Yes back problems and arthritis; no rheumatoid arthritis, gout or joint pain Cardio Cardiovascular: Yes murmur and high blood pressure; no pacemaker, heart disease, atrial fibrillation, heart attack, heart stent, palpitations, shortness of breat with exertion or chest pain Psych Psychiatric: No depression, anxiety or hearing voices Resp Respiratory: Yes shortness of breath, No sleep apnea, No cough, No COPD, No asthma, No emphysema, No wheezing Gastro Gastrointestinal: Yes abdominal pain, No nausea or vomiting, No diarrhea, No constipation, No blood in stool, Yes acid reflux, No hemorrhoids, No ulcers, Yes gallbladder problem, No black,tarry stools Radhames Hematologic: No blood thinners, No blood disorders, No bleeding, No anemia, No blood clots Neuro Neurologic: No system reviewed and no additional complaints, except as docu, No as per HPI, No abnormal walking, No abnormal hearing, No abnormal movements, No abnormal speech, No behavioral changes, No burning sensations, No confusion, No seizure-like activity, No unsteadiness, No dizziness, No localized weakness, No frequent falls, No headache(s), No lack of coordination, No loss of vision, No memory loss, Yes numbness, No other visual disturbances, No radiating pain, No restless legs, No sensory deficit, No fainting, Yes tingling, No tremor(s), No weakness, No other Exam Const General: well developed, no acute distress, well hydrated Orientation: oriented to person, oriented to place, oriented to time [facility] Head: normocephalic, atraumatic Ears: external ears normal Mouth: moist mucous membranes Eyes Sclera: sclerae normal Pupils: normal by confrontation Neck Neck: no lymphadenopathy noted Neck mass: No Thyroid: symmetrical, thyroid normal Chest Chest palpation AND inspection: normal inspection of the chest Breast Palpation: No nipple discharge Resp Effort AND Inspection: normal respiratory effort Auscultation: clear to auscultation bilaterally Percussion: percussion normal Cardio Rate: regular rate Rhythm: regular rhythm Heart Sounds: murmur GI Palpation: soft, tender, no masses, no hepatosplenomegaly Auscultation: normal bowel sounds Rectal Exam: other Other: Rectal exam deferred. Extrem General: no clubbing, cyanosis or edema, normal to inspection Assessment AND Plan Problems 1. Polyp of gallbladder K82.4 2. Right upper quadrant abdominal pain R10.11 Plan I have discussed the above with the patient. I have offered the patient esophagogastroduodenoscopy for evaluation. I have explained the risks/benefits of the procedure and described the procedure. I have discussed the risks with the patient, including but not limited to: infection, bleeding, perforation of the GI tract requiring emergency surgery, inability to complete the procedure, injury to any internal organs, complications of anesthesia, etc. - the patient understands and agrees to proceed. I have answered all the patient's questions to the patient's satisfaction and the patient has no further questions. The patient has been given instructions for the colon cleansing preparation. If the EGD does not show any obvious pathology we are going to proceed with a laparoscopic cholecystectomy. My plan is to perform a laparoscopic cholecystectomy with intraoperative cholangiogram. The planned surgical procedure was discussed extensively with the patient. The risks, benefits, anticipated outcomes and possible complication were mentioned. My staff has also explained the procedure in understandable terms and the patient was given the option to take printed material concerning the planned procedure. The patient had the opportunity to ask questions concerning the planned procedure. The patient freely consents to the planned procedure. Orders Orders: Coding Level of Care Code Off vis,new,level 3 Diagnoses Polyp of gallbladder K82.4 Right upper quadrant abdominal pain R10.11 02/06/18 1538 <Electronically signed by Haja Young MD> Date Haja Acuna Signature: Date (if applicable) CC: Danie Gomes MD US ABDOMEN, LIMITED Observed: 01/25/2018 Status: F Source: [place] 12:40 PM [facility] REPOSITORY Exam Date/Time: 01/25/2018 13:19 EST Reason for Exam: GALLBLADDER POLYP ATTN: GB;Abdominal pain Report STUDY: US Abdomen, Limited; 01/25/2018 1:19 pm INDICATION: Abdominal pain. COMPARISON: 11/26/2016 ACCESSION NUMBER(S): [id number] ORDERING CLINICIAN: Danie Gomes TECHNIQUE: Multiple images of the right upper quadrant were obtained. Color Doppler was also performed . FINDINGS: LIVER: A 7 mm cyst is present at the right liver lobe, the liver parenchyma otherwise is homogeneous. There is hepatic size is borderline measuring 19 cm. GALLBLADDER: There are multiple echogenicities along the wall of the gallbladder measuring up to 6 mm without shadowing consistent with polyps, seen on the prior examination. There are no definite gallbladder calculi, there is no wall thickening or pericholecystic fluid. BILIARY TREE: No intra or extrahepatic biliary dilatation is identified. The common bile duct measures 6 mm. PANCREAS: The pancreatic tail is not well visualized due to overlying bowel, otherwise the visualized pancreatic parenchyma appeared homogeneous. RIGHT KIDNEY: The right kidney is normal in size, measuring 10.7 cm in craniocaudal dimension. The renal cortical echogenicity and thickness are within normal limits. No hydronephrosis or renal calculi are seen. OTHER: No free fluid VESSELS: Hepatopetal blood flow and patency of the hepatic veins by color doppler. IMPRESSION: Exam Date/Time: 01/25/2018 13:19 EST Report 1. The pancreatic tail is not well visualized due to overlying bowel, otherwise the visualized pancreatic parenchyma appeared homogeneous. 2. Gallbladder polyps similar to the prior examination. 3. Borderline hepatic size measuring 19 cm. FINAL REPORT Dictated: 01/25/2018 1:44 pm Nasir Barajas MD Signed (Electronic Signature): 01/25/2018 1:44 pm Signed by: Nasir Barajas MD Technologist: NARESH BURT MAMM SCREEN Observed: 01/13/2018 Status: F Source: [facility] IF PERF AND 1:23 PM [facility] 3D [place] REPOSITORY Exam Date/Time: 01/13/2018 13:36 EST Reason for Exam: Screening;SCREENING Report STUDY: Digital mammography screening with shelbie; 01/13/2018 1:36 pm ACCESSION NUMBER(S): [id number] ORDERING CLINICIAN: Danie Gomes INDICATION: Screening. COMPARISON: Comparison is made to prior digital mammograms dated103/13/2016 and 01/09/2016 FINDINGS: CC and MLO 2D digital mammograms and digital breast tomosynthesis images were obtained of the bilateral breasts. 3-D volume images were reconstructed in 4 views at an independent workstation as 1 mm slices through the breasts in both the CC and MLO projections. The breast tissue is almost entirely fatty. No discrete mass or focal asymmetry is identified. No suspicious microcalcifications or foci of architectural distortion are seen. There has been no significant change. This study was interpreted with CAD. IMPRESSION: No mammographic evidence of malignancy. BI-RADS CATEGORY: Category: 1 - Negative. Recommendation: Normal Interval Follow-up, Over Age 40. Recall Interval: 12 Months. Breast Density: Fatty. FINAL REPORT Dictated: 01/13/2018 2:52 pm Chau Simmons MD Signed (Electronic Signature): 01/13/2018 2:52 pm Signed by: Chau Simmons MD Technologist: ELEONORA Assessment: BI-RADS Category 1-Negative Recommendation: Normal interval follow-up CNOV Observed: 12/16/2017 Status: COMPLETED Source: [place] 8:10 AM [facility] REPOSITORY Office Visit (PNMDNA) MELISSA ROSE ([id number]) 1955 F Date Time Provider Department 12/16/17 8:10 AM REZA OLIVERA PNMDNA During your visit today, we recorded the following information about you: Weight Height 113.9 kg 1.676 m Reza OliveraDO 12/16/2017 8:38 AM Signed [facility] FOLLOW-UP EVALUATION The consultation is entered using voice recognition technology and may contain inaccurate syntax or word sense. Referring: Self Subjective: 62-year-old female with a history of chronic lumbosacral pain currently extending into both lower extremities, and into the feet, no particular dermatomal or myotomal distribution presents for reevaluation. The patient underwent bilateral L4 5, L5-S1 zygapophyseal joint injections with improvement but nevertheless is continued to experience waxing and waning low back and bilateral lower extremity pain stating her symptoms are fairly evenly distributed between the 2. Symptoms are exacerbated with performance of repetitive physical activity as well as with prolonged sitting and standing. She is performing a limited home exercise program consisting of stretching exercises on a daily basis and we'll also ice the area with modest temporary benefit. The patient denies specific motor or sensory changes. She denies neurogenic bowel or bladder changes. Low-dose gabapentin (not prescribed through my office) has been initiated Francies 1 mg at bedtime) in addition to the patient using meloxicam 15 mg daily and ASA when necessary (has developed mild GI side effects which by description are likely attributable to meloxicam) when necessary ASA use). The patient denies other medication related side effects. She is without additional complaints or changes at this time. Imaging: IMPRESSION: 1. ?Multilevel degenerative disc, bone and facet changes with moderate left foraminal compromise at L3/4 and L4/5. ?Overall appearance essentially unchanged when compared to previous examination of Server Systems Administrator: JOSELYN ? Transcribe Date/Time: Jun 25 2016 12:41P Dictated by : JANESSA ROY MD This examination was interpreted and the report reviewed and electronically signed by: JANESSA ROY MD on Jun 25 2016 12:52PM ?EST Results-Findings * * *Final Report* * * DATE OF EXAM: Jun 25 2016 12:30PM ? WRM ? 0303 ?- ?MRI LUMBAR SPINE WO IVCON ?/ PROCEDURE REASON: multiple diagnoses ?? ? * * * * Physician Interpretation * * * * RESULT: HISTORY: ?Low back pain unresponsive to conservative management, history of uterine malignancy COMPARISON: Today's study is compared to previous exam of 01/27/2009 EXAMINATION: Routine lumbosacral spine protocol without gadolinium. RESULTS: Counting reference: ?Lumbosacral junction. ?For the purposes of this report, L5S1 is considered the last lumbar type disc space. Alignment: ? ?There is minimal retrolisthesis of L2 on L3.. Bone marrow signal/fracture: ? ? ? No evidence of pathologic marrow infiltration. ?No evidence of prior fracture. Conus: ? ?The conus is within normal limits of signal intensity and morphology. ?The conus terminates normally at L1. Paraspinal soft tissues: ? ?Paraspinal soft tissues are unremarkable. Lower thoracic spine: ?Visualized lower thoracic canal and foramina are patent. Incidental note is made of several cystlike masses associated with both kidneys. ?For those most likely represent benign renal cysts, they are not fully characterized by this study. ?In addition, there is a small cystlike mass associated with the liver appreciated on the haste image. ? This is less than a centimeter in size and too small to characterize. L1-L2: ? ?There is broad-based degenerative disc bulging. ?Canal and foramina are patent. L2-L3: ? ?There is broad-based degenerative disc bulging. ?There are bilateral degenerative facet changes. ?Canal and foramina are patent. L3-L4: ? ?There is broad-based degenerative disc bulging. ?There are bilateral degenerative facet changes. ?There is mild right and moderate left foraminal compromise. ?Dimensions of the central canal are adequate. L4-L5: ? ?There is broad-based degenerative disc bulging. ?There are bilateral degenerative facet changes. ?There is mild right and moderate left foraminal compromise. ?There is mild central canal narrowing. L5-S1: ? ?There is marked degenerative disc space narrowing. ?There is mild broad-based disc bulging with a shallow broad-based central disc protrusion superimposed. ?There is bony osteophytosis of the vertebral body margins. ?Canal and foramina are patent. Sacrum and iliac wings: ? ?Visible sacrum and iliac wings are normal. ? Presacral soft tissues within normal limits. ? ? IMPRESSION: Degenerative changes involving the lower lumbar spine, most significant at the L5-S1 level. Server Systems Administrator: JOSELYN ? Transcribe Date/Time: Dec ?5:21P Dictated by : CHRISTOPHER BURNS MD This examination was interpreted and the report reviewed and electronically signed by: CHRISTOPHER BURNS MD on Dec ?5:23PM ?EST Results-Findings * * *Final Report* * * DATE OF EXAM: Dec ?2:50PM ? STX ? 1446 ?- ?XR LUMBAR AP/LAT/OBL/L5S1 ?/ PROCEDURE REASON: multiple diagnoses ?? ? * * * * Physician Interpretation * * * * RESULT: Examination: ?XR LUMBAR AP/LAT/OBL/L5S1 12/24/2015 History: ? lower back pain Spondylosis without myelopathy or radiculopathy, lumbosacral region Radiculopathy, site unspecified Technique: ? XR LUMBAR AP/LAT/OBL/L5S1 -- NOT APPLICABLE ? ? with 5 views on 5 images Comparison: None available RESULT: There are 5 lumbar type vertebral bodies. No acute fracture or traumatic malalignment. There is narrowing of the intervertebral disc space at the L5-S1 level and to a lesser extent the L4-L5 level. The remaining intervertebral disc spaces and vertebral body heights are maintained. The pedicles are preserved on the frontal view. The sacroiliac joints are intact bilaterally. OARRS Report: Reviewed Pain Panel/Toxicology Available: No ALLERGIES: Adhesive; Latex; Sulfa (Sulfonamide Antibiotics) Current Outpatient Medications: Current Outpatient Prescriptions: baclofen (LIORESAL) 10 mg tablet Take 10 mg by mouth three times daily. meloxicam (MOBIC) 15 mg tablet Take 1 tab daily as needed aspirin, enteric coated (ADULT LOW DOSE ASPIRIN) 81 mg EC tablet Take 1 tablet by mouth once daily. LISINOPRIL-HYDROCHLOROTHIAZIDE ORAL None Entered No current facility-administered medications for this visit. Current Anticoagulant Therapy: No Past Medical History: PAST MEDICAL HISTORY Diagnosis Date - Asthma - Fibromyalgia - Hypertension - Inflammatory polyarthropathy (HCC) - Snoring - Syncope - Uterine cancer (HCC) Past Surgical History: PAST SURGICAL HISTORY Procedure Laterality Date - APPENDECTOMY HX - HYSTERECTOMY HX - PAST SURGICAL HISTORY OF right TKR - 04/2011 Review of Systems: General: Negative for weight loss, malaise or fevers. HEENT: Negative for epistaxis, frequent/significant headaches, changes in hearing or vision. Neck: Negative for lumps, goiter, pain or significant neck swelling. Cardiovascular: Negative for chest pain, palpitations or leg swelling. Respiratory: Negative for shortness of breath, cough or wheezing. GI: Negative for melena, hematochezia or change in bowel habits. : Negative for dysuria, frequency or incontinence. Skin: Negative for lesions, rash or pruritis. Psych: Negative for sleep disturbance, mood disorder or recent psychosocial stressors. Hematology/Lymphology: Negative for easy bruising/bleeding or lymphadenopathy. Endocrine: Negative for heat/cold intolerance, polyuria or polydipsia. All other reviewed and negative other than HPI. Physical Examination: Ht 167.6 cm (5' 6) Wt 113.9 kg (251 lb) BMI 40.51 kg/m? HEENT: No cervical lymphadenopathy. No thyromegaly. Cor: RRR . Peripheral pulses +2/4 in the upper and lower extremities. No peripheral edema is noted. Lungs: BS equal and CTA. Abdomen: Soft, protuberant, non-tender. Without masses, organomegaly. Musculoskeletal: Postural tone is fair. The pelvis is anteverted. Facet joint tenderness is noted on the left at L4-5 and to a greater extent at L5-S1. A sacral torsion is not present. True leg lengths are equal. Gait is broad-based. Strength is symmetric and full in the upper and lower extremities. Neuro: Deep tendon reflexes are +1/4 throughout. Plantar reflexes are downgoing. Clinical Impression: 1. Lumbosacral pain, etiology: Lumbar spondylosis-lumbar facet syndrome-lumbar degenerative disc disease-radicular lower extremity pain Recommendation/Plan: 1. The patient was advised regarding body mechanics, ergonomic issues, physical activity guidelines and encouraged with respect to long-term performance of her home exercise program. 2. The patient relates a history of having side effects which she feels are related to medications coming in a capsule form. Will discontinue her current gabapentin prescription begin gabapentin 600 mg one half tablet at bedtime for 4 days increasing to one half tablet twice a day for 4 days then one half tablet 3 times a day thereafter as indicated and tolerated, #45 with 2 refills provided. 3. Discontinue meloxicam, restrict ASA 81 mg EC daily. Should GI side effects persist the patient was encouraged to contact her primary care provider. 4. Follow-up in 6-8 weeks. Additional recommendations at that time will likely include modification of the patient's current exercise program to include aquatics. The patient is in agreement with the treatment plan. All questions the patient had were answered at the time of today's visit. Electronically Signed: Reza Olivera, December 16, 2017 The consultation is to be transmitted via electronic medical record for those providers who practice within [facility], [place] and for those with access to [employer] via [employer] or via letter. Abby Otto RN, RN 12/16/2017 8:36 AM Addendum STOP Gabapentin 100 mg, STOP Mobic ( Meloxicam), STOP Aspirin ( If stomach symptoms persist contact PCP) Gabapentin 600 mg 1/2 a tablet at bedtime for 4 days then increase to 1/2 a tablet twice a day for 4 days then increase to 1/2 a tablet three times a day thereafter Do not abruptly stop this medication if you have questions or concerns please call the office for instructions Follow up 2 mo Referring Provider: REZA OLIVERA [[id number]] Allergies As of Date: 12/16/2017 Noted Allergy Reaction ADHESIVE 06/03/2016 2 - Rash LATEX 06/03/2016 2 - Rash SULFA (SULFONAMIDE ANTIBIOTICS) 02/18/2009 Date Reviewed: 12/16/2017 Reviewed by: Abby Otto RN - Fully Assessed Primary Visit Diagnosis:Spondylosis of lumbar region without myelopathy or radiculopathy [M47.816] Other Visit Diagnoses:Lumbar degenerative disc disease [M51.36] Lumbar facet joint syndrome [M47.816] Radicular pain of left lower extremity [M54.10] Order(s):gabapentin (NEURONTIN) 600 mg tablet1/2 tablet at HS for 4 days then increase to1/2 tablet BID for 4 days then increase to 1/2 tablet TID thereafterDisp: 45 tabletRfl: 2 Prescriptions as of 12/16/2017 Sig: GABAPENTIN 600 MG TABLET 1/2 tablet at HS for 4 days t* BACLOFEN 10 MG TABLET Take 10 mg by mouth three leah* MELOXICAM 15 MG TABLET Take 1 tab daily as needed ASPIRIN 81 MG TABLET,DELAYED * Take 1 tablet by mouth once d* * LISINOPRIL-HYDROCHLOROTHIAZID* None Entered Problem List As Of Date 12/16/2017 Noted Resolved Lumbosacral Spondylosis without Myelopathy [M47*INVALID FOR* Lumbar facet joint syndrome [M47.816] INVALID FOR* Lumbar degenerative disc disease [M51.36] INVALID FOR* Other instructions from your clinician: STOP Gabapentin 100 mg, STOP Mobic ( Meloxicam), STOP Aspirin ( If stomach symptoms persist contact PCP) Gabapentin 600 mg 1/2 a tablet at bedtime for 4 days then increase to 1/2 a tablet twice a day for 4 days then increase to 1/2 a tablet three times a day thereafter Do not abruptly stop this medication if you have questions or concerns please call the office for instructions Follow up 2 mo Prescriptions ordered this encounter Disp Refills Start End GABAPENTIN 600 MG TABLET 45 t* 2 12/16/2017 02/15/2018 Class: Print RX Si/2 tablet at HS for 4 days then increase to1/2 tablet BID for 4 days then increase to 1/2 tablet TID thereafter Medications Discontinued During This Encounter gabapentin (NEURONTIN) 100 mg capsule 2 12/10/2017 12/16/2017 Class: Historical Med Sig: TAKE ONE CAPSULE BY MOUTH TWICE A DAY MAY TAKE 2 CAPS IF NEEDED Disc: Course of therapy completed Encounter Status:Closed by REZA OLIVERA DO on 12/16/17 ONCOLOGY VISIT REPORT Observed: 12/07/2017 Status: F Source: [place] 12:37 PM [facility] REPOSITORY [facility] [address] [place] [id number] OFFICE VISIT Date of Service: 12/07/17 1222 MR#: [id number] Acct: [id number] Name: MELISSA ROSE Rep #: [id number] : 1955 From: Jimmie Suero MD Age/Sex: 62/F Location: [facility] Status: Signed - Problem List (1) Endometrium cancer Status: Chronic - Date of Service Date of Service:: 12/07/17 - Chief Complaint Endometrium cancer follow-up - History of Present Illness Patient is a 61-year-old female who presented in February 2015 was postmenopausal bleeding and an endometrium biopsy revealed an endometrioid adenocarcinoma FIGO grade 1 and a background of complex atypical hyperplasia. On March 19, 2016 she underwent robotic hysterectomy with bilateral salpingo-oophorectomy and SLN that revealed an endometrioid adenocarcinoma FIGO grade 1 with myometrium extension maximum depth of invasion 0.3 cm. No metastases identified in lymph nodes. She made a non-complicated recovery from her surgery which was done at [facility]. She was followed up there until September 2016 and transferring care to [facility] for convenience to residence. Her medical history is notable for morbid obesity, hypertension, dyslipidemia, GERD, chronic back pain and degenerative joint disease and gallbladder disease (asymptomatic, either calculi or disease or polyps incidentally noted on ultrasound in 2016) - Past Medical/Social History Past Medical History Cancer: Uterine cancer Social History Social History: No changes Smoking Status Never smoker Review of Systems Constitutional:: Reports: Fatigue - Chronic, able to do ADL independently. Denies: Fever, Sweats, Weight loss, Appetite change, Chills Cardiovascular:: Reports: Dyspnea on exertion - Chronic. Denies: Chest pain, Palpitations, Orthopnea, PND, Shortness of breath Respiratory: Reports: Shortness of breath upon exertion - Chronic. Denies: Cough, Hemoptysis, Shortness of Breath, Wheezing Gastrointestinal:: Reports: Abdominal pain - Chronic intermittent bouts, told in past IBS or gallbladder. Denies: Nausea, Vomiting, Diarrhea, Constipation, Hematochezia Genitourinary: Denies: Dysuria, Hematuria, 15, Flank pain Musculoskeletal:: Reports: - - Has chronic fibromyalgia unchanged. Denies: Back pain, Myalgia, Arthralgia Skin: Denies: Rash, Skin Changes, Wounds Neurological:: Denies: Headache, Dizziness, Visual changes, Tinnitus, Hearing loss Psychiatric: Denies: Anxiety, Depression, Homicidal Ideations, Suicidal Ideations Vital Signs Height 5 ft 5.5 in Weight: 117.299 kg Weight in Pounds 258.6 lbs Pulse Ox 96 - Physical Exam General: Alert, Oriented x3, No apparent distress, - - Morbidly obese, ECOG 1 HEENT: Atraumatic, PERRLA, EOMI, Normocephalic Oropharynx:: Dry mucosa Neck:: Supple, Trachea midline. Negative for: JVD, bilateral Cardiac:: Regular rate, Regular rhythm, Normal S1, Normal S2. Negative for: Murmur Lungs: Clear to auscultation, Excusion symmetrical. Negative for: Rhonchi, Wheezes Abdomen:: Soft, Non-tender, Non-distended Extremities:: Negative for: Cyanosis, Edema Neurological: Neuro grossly intact Skin:: Negative for: Lesions, Rash, Petechiae, Ecchymosis Psychiatric:: Appropriate affect, Euthymic Lymphatics:: Negative for: Cervical lymphadenopathy, Supraclavicular lymphadenopathy, Axillary lymphadenopathy Laboratory Data: Laboratory Tests CA 125 Antigen 11.0 11.0 Assessment and Plan 62-year-old female with stage IA endometrial cancer status post robotic hysterectomy, BSO and SLN in March 2016 at [facility]. Patient is on surveillance with no evidence to suggest cancer recurrence. She will be followed up every 6 months for the first 3 years since diagnosis and treatment and then annual thereafter with clinical history and physical, annual CBC CMP, and CA 125 every 6 months. Referred to [facility] locally for pelvic evaluation. Impression and plan discussed with patient Medications: Prescriptions This Visit Medication Instructions Recorded Aspirin [Aspirin EC] 81 mg PO DAILY 04/08/17 Primary Care Provider: Danie Gomes Referring Provider: 12/07/17 1237 <Electronically signed by Jimmie Suero MD> Date Jimmie Suero MD Cosigner Signature: Date (if applicable) CC: Danie Gomes MD PROGRESS Observed: 11/24/2017 Status: COMPLETED Source: [place] 8:10 AM [facility] REPOSITORY HNO ID: [id number] Author: Reza Olivera Service: (none) Author Type: Physician Type: Progress Notes Filed: 12/16/2017 8:38 AM Note Text: [facility] FOLLOW-UP EVALUATION The consultation is entered using voice recognition technology and may contain inaccurate syntax or word sense. Referring: Self Subjective: 62-year-old female with a history of chronic lumbosacral pain currently extending into both lower extremities, and into the feet, no particular dermatomal or myotomal distribution presents for reevaluation. The patient underwent bilateral L4 5, L5-S1 zygapophyseal joint injections with improvement but nevertheless is continued to experience waxing and waning low back and bilateral lower extremity pain stating her symptoms are fairly evenly distributed between the 2. Symptoms are exacerbated with performance of repetitive physical activity as well as with prolonged sitting and standing. She is performing a limited home exercise program consisting of stretching exercises on a daily basis and we'll also ice the area with modest temporary benefit. The patient denies specific motor or sensory changes. She denies neurogenic bowel or bladder changes. Low-dose gabapentin (not prescribed through my office) has been initiated Francies 1 mg at bedtime) in addition to the patient using meloxicam 15 mg daily and ASA when necessary (has developed mild GI side effects which by description are likely attributable to meloxicam) when necessary ASA use). The patient denies other medication related side effects. She is without additional complaints or changes at this time. Imaging: IMPRESSION: 1. ?Multilevel degenerative disc, bone and facet changes with moderate left foraminal compromise at L3/4 and L4/5. ?Overall appearance essentially unchanged when compared to previous examination of Server Systems Administrator: JOSELYN ? Transcribe Date/Time: Jun 25 2016 12:41P Dictated by : JANESSA ROY MD This examination was interpreted and the report reviewed and electronically signed by: JANESSA ROY MD on Jun 25 2016 12:52PM ?EST Results-Findings * * *Final Report* * * DATE OF EXAM: Jun 25 2016 12:30PM ? WRM ? 0303 ?- ?MRI LUMBAR SPINE WO IVCON ?/ PROCEDURE REASON: multiple diagnoses ?? ? * * * * Physician Interpretation * * * * RESULT: HISTORY: ?Low back pain unresponsive to conservative management, history of uterine malignancy COMPARISON: Today's study is compared to previous exam of 01/27/2009 EXAMINATION: Routine lumbosacral spine protocol without gadolinium. RESULTS: Counting reference: ?Lumbosacral junction. ?For the purposes of this report, L5S1 is considered the last lumbar type disc space. Alignment: ? ?There is minimal retrolisthesis of L2 on L3.. Bone marrow signal/fracture: ? ? ? No evidence of pathologic marrow infiltration. ?No evidence of prior fracture. Conus: ? ?The conus is within normal limits of signal intensity and morphology. ?The conus terminates normally at L1. Paraspinal soft tissues: ? ?Paraspinal soft tissues are unremarkable. Lower thoracic spine: ?Visualized lower thoracic canal and foramina are patent. Incidental note is made of several cystlike masses associated with both kidneys. ?For those most likely represent benign renal cysts, they are not fully characterized by this study. ?In addition, there is a small cystlike mass associated with the liver appreciated on the haste image. ? This is less than a centimeter in size and too small to characterize. L1-L2: ? ?There is broad-based degenerative disc bulging. ?Canal and foramina are patent. L2-L3: ? ?There is broad-based degenerative disc bulging. ?There are bilateral degenerative facet changes. ?Canal and foramina are patent. L3-L4: ? ?There is broad-based degenerative disc bulging. ?There are bilateral degenerative facet changes. ?There is mild right and moderate left foraminal compromise. ?Dimensions of the central canal are adequate. L4-L5: ? ?There is broad-based degenerative disc bulging. ?There are bilateral degenerative facet changes. ?There is mild right and moderate left foraminal compromise. ?There is mild central canal narrowing. L5-S1: ? ?There is marked degenerative disc space narrowing. ?There is mild broad-based disc bulging with a shallow broad-based central disc protrusion superimposed. ?There is bony osteophytosis of the vertebral body margins. ?Canal and foramina are patent. Sacrum and iliac wings: ? ?Visible sacrum and iliac wings are normal. ? Presacral soft tissues within normal limits. ? ? IMPRESSION: Degenerative changes involving the lower lumbar spine, most significant at the L5-S1 level. Server Systems Administrator: JOSELYN ? Transcribe Date/Time: Dec ?5:21P Dictated by : CHRISTOPHER BURNS MD This examination was interpreted and the report reviewed and electronically signed by: CHRISTOPHER BURNS MD on Dec ?5:23PM ?EST Results-Findings * * *Final Report* * * DATE OF EXAM: Dec ?2:50PM ? STX ? 1446 ?- ?XR LUMBAR AP/LAT/OBL/L5S1 ?/ PROCEDURE REASON: multiple diagnoses ?? ? * * * * Physician Interpretation * * * * RESULT: Examination: ?XR LUMBAR AP/LAT/OBL/L5S1 12/24/2015 History: ? lower back pain Spondylosis without myelopathy or radiculopathy, lumbosacral region Radiculopathy, site unspecified Technique: ? XR LUMBAR AP/LAT/OBL/L5S1 -- NOT APPLICABLE ? ? with 5 views on 5 images Comparison: None available RESULT: There are 5 lumbar type vertebral bodies. No acute fracture or traumatic malalignment. There is narrowing of the intervertebral disc space at the L5-S1 level and to a lesser extent the L4-L5 level. The remaining intervertebral disc spaces and vertebral body heights are maintained. The pedicles are preserved on the frontal view. The sacroiliac joints are intact bilaterally. OARRS Report: Reviewed Pain Panel/Toxicology Available: No ALLERGIES: Adhesive; Latex; Sulfa (Sulfonamide Antibiotics) Current Outpatient Medications: Current Outpatient Prescriptions: baclofen (LIORESAL) 10 mg tablet Take 10 mg by mouth three times daily. meloxicam (MOBIC) 15 mg tablet Take 1 tab daily as needed aspirin, enteric coated (ADULT LOW DOSE ASPIRIN) 81 mg EC tablet Take 1 tablet by mouth once daily. LISINOPRIL-HYDROCHLOROTHIAZIDE ORAL None Entered No current facility-administered medications for this visit. Current Anticoagulant Therapy: No Past Medical History: PAST MEDICAL HISTORY Diagnosis Date - Asthma - Fibromyalgia - Hypertension - Inflammatory polyarthropathy (HCC) - Snoring - Syncope - Uterine cancer (HCC) Past Surgical History: PAST SURGICAL HISTORY Procedure Laterality Date - APPENDECTOMY HX - HYSTERECTOMY HX - PAST SURGICAL HISTORY OF right TKR - 04/2011 Review of Systems: General: Negative for weight loss, malaise or fevers. HEENT: Negative for epistaxis, frequent/significant headaches, changes in hearing or vision. Neck: Negative for lumps, goiter, pain or significant neck swelling. Cardiovascular: Negative for chest pain, palpitations or leg swelling. Respiratory: Negative for shortness of breath, cough or wheezing. GI: Negative for melena, hematochezia or change in bowel habits. : Negative for dysuria, frequency or incontinence. Skin: Negative for lesions, rash or pruritis. Psych: Negative for sleep disturbance, mood disorder or recent psychosocial stressors. Hematology/Lymphology: Negative for easy bruising/bleeding or lymphadenopathy. Endocrine: Negative for heat/cold intolerance, polyuria or polydipsia. All other reviewed and negative other than HPI. Physical Examination: Ht 167.6 cm (5' 6) Wt 113.9 kg (251 lb) BMI 40.51 kg/m? HEENT: No cervical lymphadenopathy. No thyromegaly. Cor: RRR . Peripheral pulses +2/4 in the upper and lower extremities. No peripheral edema is noted. Lungs: BS equal and CTA. Abdomen: Soft, protuberant, non-tender. Without masses, organomegaly. Musculoskeletal: Postural tone is fair. The pelvis is anteverted. Facet joint tenderness is noted on the left at L4-5 and to a greater extent at L5-S1. A sacral torsion is not present. True leg lengths are equal. Gait is broad-based. Strength is symmetric and full in the upper and lower extremities. Neuro: Deep tendon reflexes are +1/4 throughout. Plantar reflexes are downgoing. Clinical Impression: 1. Lumbosacral pain, etiology: Lumbar spondylosis-lumbar facet syndrome-lumbar degenerative disc disease-radicular lower extremity pain Recommendation/Plan: 1. The patient was advised regarding body mechanics, ergonomic issues, physical activity guidelines and encouraged with respect to long-term performance of her home exercise program. 2. The patient relates a history of having side effects which she feels are related to medications coming in a capsule form. Will discontinue her current gabapentin prescription begin gabapentin 600 mg one half tablet at bedtime for 4 days increasing to one half tablet twice a day for 4 days then one half tablet 3 times a day thereafter as indicated and tolerated, #45 with 2 refills provided. 3. Discontinue meloxicam, restrict ASA 81 mg EC daily. Should GI side effects persist the patient was encouraged to contact her primary care provider. 4. Follow-up in 6-8 weeks. Additional recommendations at that time will likely include modification of the patient's current exercise program to include aquatics. The patient is in agreement with the treatment plan. All questions the patient had were answered at the time of today's visit. Electronically Signed: Reza Olivera DO December 16, 2017 The consultation is to be transmitted via electronic medical record for those providers who practice within [facility] [place] and for those with access to [employer] via MD Connect or via letter. CBC WITH DIFF Collected: 11/17/2017 Status: F Source: [facility] 12:38 PM [facility] REPOSITORY TYPE CODE TESTS RESULT OUT OF RANGE REFERENCE UNITS LAB WBC 3.4-10.6 K/mcL WBC Normal 7.8 LAB RBC 3.7-5.0 M/mcL High RBC 5.11 LAB HGB 11.6-15.4 g/dL Normal Hemoglobin 14.2 LAB HCT 34.4-44.8 % Normal Hematocrit 43.6 LAB MCV 82.6-98.9 FL MCV Normal 85.4 LAB MCH 27.9-33.9 pg Low MCH 27.7 LAB MCHC 33.1-35.1 g/dL Low MCHC 32.5 LAB RDW 10.0-14.4 % RDW Normal 14.0 LAB PLT 162-402 K/mcL Platelet Normal Count 388 LAB MPV 7.0-10.6 FL MPV Normal 9.8 LAB NEUT# 1.2-6.9 K/mcL Normal Neutrophil # 5.0 LAB LYMPH# 1.0-3.7 K/mcL Normal Lymphocyte # 2.0 LAB MONO# 0.1-0.6 K/mcL Monocyte Normal # 0.6 LAB EOS# 0-0.5 K/mcL Normal Eosinophil # 0.2 LAB BASO# 0-0.2 K/mcL Basophil Normal # 0.0 LAB SEGNEU% % Normal Segmented Neut % 63.6 LAB LYMP% % Normal Lymphocyte% 25.9 LAB MO% % Monocyte Normal % 7.6 LAB EO% % Normal Eosinophil % 2.3 LAB BA% % Basophil Normal % 0.6 Performed By: #### SEDR, ALLISON, CBCDIF, G6PD, DNADS, C-3, C-4, BUNCR, CRPQT #### Unless otherwise noted, all testing performed by [address] [place], [place] [address] CLIA: [id number] Electrical Contractor: Modesto Mckinley M.D. BUN AND CREATININE Collected: 11/17/2017 Status: F Source: [facility] 12:38 PM [facility] REPOSITORY TYPE CODE TESTS RESULT OUT OF RANGE REFERENCE UNITS LAB BUN 8-25 mg/dL BUN Normal 14 LAB CREA 0.60-1.20 mg/dL Normal Creatinine 0.72 LAB eGFR ml/min/1.7 3sq.m Normal eGFR,NonAfrican- >=60 Cameroonian Result Comment: Non- GFR Calc eGFR is an estimated Glomerular Filtration Rate based on the value of the patient's serum creatinine. In outpatients, eGFR should be used as a helpful tool in screening for CKD. In inpatients or patients with acute renal failure, eGFR represents the GFR at the moment of the draw and should be used with caution. LAB eGFRB ml/min/1.73sq.m eGFR, Normal -Cameroonian >=60 Result Comment: GFR Calc Performed By: #### SEDR, ALLISON, CBCDIF, G6PD, DNADS, C-3, C-4, BUNCR, CRPQT #### Unless otherwise noted, all testing performed by [place] [address] CLIA: [id number] Electrical Contractor: Modesto Mckinley M.D. CRP, C-REACTIVE Collected: 11/17/2017 Status: F Source: [facility] PROTEIN 12:38 PM [facility] REPOSITORY TYPE CODE TESTS RESULT OUT OF RANGE REFERENCE UNITS LAB CRPQT 0.0-10.0 mg/L Normal CRP, 9.3 C-Reactive Protein Performed By: #### SEDR, ALLISON, CBCDIF, G6PD, DNADS, C-3, C-4, BUNCR, CRPQT #### Unless otherwise noted, all testing performed by [place] [address] CLIA: [id number] Electrical Contractor: Modesto Mckinley M.D. SED RATE Collected: 11/17/2017 Status: F Source: [facility] 12:38 PM [facility] REPOSITORY TYPE CODE TESTS RESULT OUT OF RANGE REFERENCE UNITS LAB SEDR 0-20 MM/hr. High Sed Rate 38 Performed By: #### SEDR, ALLISON, CBCDIF, G6PD, DNADS, C-3, C-4, BUNCR, CRPQT #### Unless otherwise noted, all testing performed by [place] [address] CLIA: [id number] Electrical Contractor: Modesto Mckinley M.D. C-4 COMPLEMENT Collected: 11/17/2017 Status: F Source: [facility] 12:38 PM [facility] REPOSITORY TYPE CODE TESTS RESULT OUT OF RANGE REFERENCE UNITS LAB C-4 16.0-47.0 mg/dL C-4 Normal Complement 26.4 Result Comment: Test Performed by [facility] [employer] [address] [address] Performed By: #### SEDR, ALLISON, CBCDIF, G6PD, DNADS, C-3, C-4, BUNCR, CRPQT #### Unless otherwise noted, all testing performed by [place] [address] CLIA: [id number] Electrical Contractor: Modesto Mckinley M.D. C-3 COMPLEMENT Collected: 11/17/2017 Status: F Source: [facility] 12:38 PM [facility] REPOSITORY TYPE CODE TESTS RESULT OUT OF RANGE REFERENCE UNITS LAB C-3 73.0-183.0 mg/dL C-3 Normal Complement 164.7 Result Comment: Test Performed by [facility] [employer] [address] [address] Performed By: #### SEDR, ALLISON, CBCDIF, G6PD, DNADS, C-3, C-4, BUNCR, CRPQT #### Unless otherwise noted, all testing performed by [place] [address] CLIA: [id number] Electrical Contractor: Modesto Mckinley M.D. GLUC 6 PHOS DEHYDR. Collected: 11/17/2017 Status: F Source: [facility] 12:38 PM [facility] REPOSITORY TYPE CODE TESTS RESULT OUT OF RANGE REFERENCE UNITS LAB G6PD 8.8 - 13.4 U/g Hb Normal Gluc 6 10.8 Phos Dehydr. Result Comment: ADDITIONAL INFORMATION This test was developed and its performance characteristics determined by [facility] in a manner consistent with CLIA requirements. This test has not been cleared or approved by the U.S. Food and Drug Administration. Test Performed by: [address] [address] Performed By: #### SEDR, ALLISON, CBCDIF, G6PD, DNADS, C-3, C-4, BUNCR, CRPQT #### Unless otherwise noted, all testing performed by [place] [address] CLIA: [id number] Electrical Contractor: Modesto Mckinley M.D. ANTINUCLEAR ANTIBODY Collected: 11/17/2017 Status: F Source: [facility] 12:38 PM [facility] REPOSITORY TYPE CODE TESTS RESULT OUT OF RANGE REFERENCE UNITS LAB ALLISON <=1.0 U (Negative) Antinuclear Normal Antibody 0.4 Result Comment: Test Performed by: [address] [address] Performed By: #### SEDR, ALLISON, CBCDIF, G6PD, DNADS, C-3, C-4, BUNCR, CRPQT #### Unless otherwise noted, all testing performed by [place] [address] CLIA: [id number] Electrical Contractor: Modesto Mckinley M.D. DNA DOUBLE STRANDED(DSDNA)AB Collected: Status: F Source: [facility] 11/17/2017 12:38 PM [facility] REPOSITORY TYPE CODE TESTS RESULT OUT OF RANGE REFERENCE UNITS LAB DNADS <10 Titer Normal DNA < 10 Double Stranded(dsD NA)Ab Result Comment: Test Performed by [facility] [address] [place] [address] Performed By: #### SEDR, ALLISON, CBCDIF, G6PD, DNADS, C-3, C-4, BUNCR, CRPQT #### Unless otherwise noted, all testing performed by [place] [address] CLIA: [id number] Electrical Contractor: Modesto Mckinley M.D. IMMUNGLOBULINS Collected: 11/17/2017 Status: F Source: [facility] (IGG,IGM,IGA) 12:38 PM [facility] REPOSITORY TYPE CODE TESTS RESULT OUT OF RANGE REFERENCE UNITS LAB IGA 84-381 mg/dL Normal IgA 263 (Immunoglobu nalini A) Result Comment: Test Performed by [facility] [place] [place] [address] LAB IGG 541-1,694 mg/dL IgG (Immunoglobulin Normal G) 1193 LAB IGM 43-238 mg/dL IGM (Immunoglobulin Normal M) 152 Performed By: #### IMGLOBS #### Unless otherwise noted, all testing performed by [place] [address] CLIA: [id number] Electrical Contractor: Modesto Mckinley M.D. ANNI ANTIBODIES Collected: 11/17/2017 Status: F Source: [facility] 12:38 PM [facility] REPOSITORY TYPE CODE TESTS RESULT OUT OF RANGE REFERENCE UNITS LAB ENAAB 0-19 Units ANNI Normal Antibodies 5 Result Comment: THE ANNI Screen tests for SSA,SSB,SM,SM/RESOURCE RECOVERY ENGINEER,SCL-70, AND JO1. Reference Ranges: <20 Units = Negative 20-25 Units = Borderline >25 Units = Positive Test Performed by [facility] [place] [place] [address] Performed By: #### ENAAB #### Unless otherwise noted, all testing performed by [place] [address] CLIA: [id number] Electrical Contractor: Modesto Mckinley M.D. CANCER ANTIGEN 125 Collected: 11/08/2017 Status: F Source: [place] 11:37 AM [facility] REPOSITORY Order Comment: Reason for Laboratory Test ROUTINE CHECK TYPE CODE TESTS RESULT OUT OF RANGE REFERENCE UNITS LAB L3100.5000 0.0-38.1 U/mL Normal CA125 11.0 2303 Result Comment: Estela ECLIA methodology Performed at: [address] [id number] Testing Tech: Reese Cheek PhD, Phone: [phone] Performed By: #### L3100.5000 #### [facility] (refer to report for specific site) refer to report for address and phone number LAB MISCELLANEOUS Collected: 08/19/2017 Status: F Source: [facility] 3:37 PM [facility] REPOSITORY Order Comment: ALLISON with reflex TYPE CODE TESTS RESULT OUT OF RANGE REFERENCE UNITS LAB [id number](LO INC) Normal Test Name LC 971301 LAB 95829439(LO INC) Normal Status See Ref Lab Report Performed By: #### [id number] #### MICHAEL [employer] Subsection [address] [place] [id number] BMP Collected: 08/19/2017 Status: F Source: [facility] 3:[address] [place] [address] REPOSITORY TYPE CODE TESTS RESULT OUT OF RANGE REFERENCE UNITS LAB [id number](L 70-99 mg/dL OINC) Glucose Normal Lvl 95 LAB 41721724(L 7-18 mg/dL OINC) BUN Normal 16 LAB 6659727(LO 0.6-1.3 mg/dL INC) Normal Creatinine 0.6 LAB 45355003(L 5.4-30.0 ratio OINC) Normal BUN/Creat Ratio 26.7 LAB 31845460(L 8.4-10.2 mg/dL OINC) Low Calcium Lvl 8.3 LAB 06745486(L 136-145 mEq/L OINC) Sodium Normal Lvl 140 LAB 24116685(L 3.5-5.1 mEq/L OINC) Normal Potassium Lvl 3.8 LAB 75422781(L 98-107 mEq/L OINC) Chloride Normal 102 LAB 81511010(L 24.0-30.0 mEq/L OINC) CO2 Normal 25.8 Performed By: #### [id number] #### MICHAEL [employer] [address] [place] [address] EGFR Collected: 08/19/2017 Status: F Source: [place] 3:37 [facility] REPOSITORY Order Comment: Order added by Discern Expert. TYPE CODE TESTS RESULT OUT OF RANGE REFERENCE UNITS LAB 42039398(LO mL/min/1.73 INC) m2 Normal eGFR >60 LAB 51043919(LO mL/min/1.73 INC) m2 Normal eGFR AA >60 Performed By: #### [id number] #### MICHAEL [employer] [facility] [place] [address] CRP Collected: 08/19/2017 Status: F Source: [place] 3:37 PM [facility] REPOSITORY TYPE CODE TESTS RESULT OUT OF RANGE REFERENCE UNITS LAB 60626885(LO 0.00-0.75 mg/dL INC) Normal CRP 0.59 Performed By: #### [id number] #### [place] [address] SED RATE AUTOMATED Collected: 08/19/2017 Status: F Source: [place] 3:37 PM [facility] REPOSITORY TYPE CODE TESTS RESULT OUT OF RANGE REFERENCE UNITS LAB 48974287(L mm/hr OINC) Sed Normal Rate Automated 41 Result Comment: AGE-SPECIFIC REFERENCE RANGES FOR SEDIMENTATION RATE AUTOMATED REFERENCE RANGE - MM/HR AGE MEN WOMEN 0-2 0-2 - PUBERTY 3-13 3-13 PUBERTY - 50 YRS 0-15 0-20 > 50 YRS 0-20 0-30 Performed By: #### [id number] #### MICHAEL Hematology Manual Subsection [address] [place] [address] TSH Collected: 08/19/2017 Status: F Source: [place] 3:37 PM [facility] REPOSITORY TYPE CODE TESTS RESULT OUT OF RANGE REFERENCE UNITS LAB [id number](LO 0.30-5.60 mIU/m INC) Normal TSH 2.69 Performed By: #### [id number] #### [place] [address] VIT B12 Collected: 08/19/2017 Status: F Source: [place] 3:37 PM [facility] REPOSITORY TYPE CODE TESTS RESULT OUT OF RANGE REFERENCE UNITS LAB 09464771(LO 180-914 pg/mL INC) Normal Vitamin B12 259 Lvl Performed By: #### [id number] #### MICHAEL [employer] [facility] [place] [address] VITAMIN D 25 HYDROXY Collected: 08/19/2017 Status: F Source: [place] 3:37 PM [facility] REPOSITORY TYPE CODE TESTS RESULT OUT OF RANGE REFERENCE UNITS LAB [id number](L 30.0-100.0 ng/mL OINC) Normal Vitamin D 25 32.4 Hydroxy Performed By: #### [id number] #### MICHAEL [employer] [address] [place] [address] MANUAL DIFF Collected: 08/19/2017 Status: F Source: [place] 3:[address] [facility] REPOSITORY Order Comment: Order added by Discern Expert. TYPE CODE TESTS RESULT OUT OF RANGE REFERENCE UNITS LAB 66970270(L 37-75 % OINC) Normal Segs Man 62 LAB 97455126(L 14-48 % OINC) Normal Lymph Man 32 LAB 57405533(L 1-11 % OINC) Normal Monocyte Man 5 LAB 39557678(L 0-5 % OINC) Normal Eos Man 1 LAB 07130926(L 0-1 % OINC) Normal Basophil Man 0 LAB 73935542(L OINC) Normal RBC Morph NORMAL Performed By: #### [id number] #### MICHAEL [employer] [address] [place] [address] CBC W/ MANUAL DIFF Collected: 08/19/2017 Status: F Source: [place] 3:[address] [facility] REPOSITORY TYPE CODE TESTS RESULT OUT OF RANGE REFERENCE UNITS LAB [id number](L 3.6-11.0 E3/mcL OINC) Normal WBC 8.2 LAB 64247789(L 3.90-5.40 E6/mcL OINC) Normal RBC 4.89 LAB 56907158(L 12.0-16.0 G/DL OINC) Normal Hgb 13.5 LAB 83094390(L 36.0-48.0 % OINC) Normal Hct 41.9 LAB 33142142(L 11.5-14.5 % OINC) Normal RDW 13.8 LAB 36189819(L 27.0-31.0 pg OINC) Normal MCH 27.6 LAB 54217763(L 33.0-37.0 G/DL OINC) Low MCHC 32.2 LAB 23056384(L 78.0-100.0 fL OINC) Normal MCV 85.7 LAB 87393799(L 7.4-11.0 fL OINC) Normal MPV 9.2 LAB 55653082(L 130-400 E3/mcL OINC) Normal Platelet 367 Performed By: #### [id number] #### MICHAEL [employer] [address] [place] [address] ZZPLT MORPH Collected: 08/19/2017 Status: F Source: [place] 3:37 PM [facility] REPOSITORY TYPE CODE TESTS RESULT OUT OF RANGE REFERENCE UNITS LAB 50159921(L OINC) Normal Platelet NORMAL Estimate LAB 65027758(L OINC) Normal Platelet Morph NORMAL Performed By: #### [id number] #### [place] [address] .MANUAL ABS Collected: 08/19/2017 Status: F Source: [place] 3:37 PM [facility] REPOSITORY Order Comment: Order added by Discern Expert. TYPE CODE TESTS RESULT OUT OF RANGE REFERENCE UNITS LAB 14104401(L 1.4-6.5 10x3/ OINC) Normal Segs Abs Man 5.1 LAB 03576855(L 1.2-3.4 10x3/ OINC) Normal Lymph Abs Man 2.6 LAB 53330667(L 0.0-0.7 10x3/ OINC) Normal [place] Abs Man 0.4 LAB 72657281(L 0.0-0.5 10x3/ OINC) Normal Eos Abs Man 0.1 LAB 12391123(L 0.0-0.2 10x3/ OINC) Normal Basophil Abs 0.0 Man Performed By: #### [id number] #### [place] [address] BMP Collected: 05/05/2017 Status: F Source: [place] 2:30 PM [facility] REPOSITORY TYPE CODE TESTS RESULT OUT OF RANGE REFERENCE UNITS LAB 13546110(L 70-99 mg/dL OINC) High Glucose Lvl 118 LAB 59226973(L 7-18 mg/dL OINC) High BUN 21 LAB 1372291(LO 0.6-1.3 mg/dL INC) Normal Creatinine 0.8 LAB 87332312(L 5.4-30.0 ratio OINC) Normal BUN/Creat Ratio 26.2 LAB 68218772(L 8.4-10.2 mg/dL OINC) Calcium Normal Lvl 8.7 LAB 36613196(L 136-145 mEq/L OINC) Sodium Normal Lvl 144 LAB 43129859(L 3.5-5.1 mEq/L OINC) Normal Potassium Lvl 3.8 LAB 83298588(L 98-107 mEq/L OINC) Chloride Normal 107 LAB 78046807(L 24.0-30.0 mEq/L OINC) CO2 Normal 29.9 Performed By: #### [id number] #### MICHAEL [employer] [address] [place] [address] EGFR Collected: 05/05/2017 Status: F Source: [place] 2:30 PM [facility] REPOSITORY Order Comment: Order added by Discern Expert. TYPE CODE TESTS RESULT OUT OF RANGE REFERENCE UNITS LAB 30282082(LO mL/min/1.73 INC) m2 Normal eGFR >60 LAB 06096077(LO mL/min/1.73 INC) m2 Normal eGFR AA >60 Performed By: #### [id number] #### MICHAEL [employer] [address] [place] [address] CBC W/DIFF, AUTOMATED Collected: 04/18/2017 Status: F Source: [place] 2:45 PM [facility] REPOSITORY Order Comment: Reason for Laboratory Test ROUTINE NEW PATIENT TYPE CODE TESTS RESULT OUT OF RANGE REFERENCE UNITS LAB L100.1000 4.4-11.0 K/mm3 High WBC 11.5 LAB L100.1200 4.2-5.4 M/mm3 Normal RBC 4.98 LAB L100.1300 12.0-15.0 g/dl Normal HGB 13.8 LAB L100.1400 37-47 % Normal HCT 43.3 LAB L100.1500 81-99 fL Normal MCV 86.9 LAB L100.1600 27.0-32.0 pg Normal MCH 27.7 LAB L100.1700 32-36 g/gl Low MCHC 31.9 LAB L100.1810 11.6-14.6 % Normal RDW CV 13.8 LAB L100.1820 35.1-43.9 fl Normal RDW SD 43.5 LAB L100.1900 150-450 K/mm3 Normal PLT 434 LAB L100.2000 6.2-12.0 fl Normal MPV 10.7 LAB L100.2100 47-70 % Normal NEUT% 65.4 LAB L100.2200 19-41 % Normal LY% 27.3 LAB L100.2300 0-10 % Normal MONO% 6.0 LAB L100.2400 0-5 % Normal EO% 0.7 LAB L100.2500 0-1 % Normal BASO% 0.3 LAB L100.2550 0.0-0.9 % Normal IM GRAN % 0.300 Result Comment: IG% - Immature Granulocytes (promyelocytes, myelocytes and metamyelocytes) > 1% indicates that a LEFT SHIFT is Present. LAB L100.2620 2.0-7.7 X10 3/uL Normal Absolute Neut 7.5 LAB L100.2720 0.83-4.51 X10 3/ul Normal Absolute Lymph 3.14 Performed By: #### L100.0100, L500.4050 #### [facility] [address] [place], [address] COMPREHENSIVE METABOLIC Collected: 04/18/2017 Status: F Source: [facility] 2:45 PM [facility] REPOSITORY Order Comment: Reason for Laboratory Test ROUTINE NEW PATIENT TYPE CODE TESTS RESULT OUT OF RANGE REFERENCE UNITS LAB L501.0100 74-106 mg/dL High GLU 113 Result Comment: Fasting Glucose result from 100 to 125 mg/dL suggests IMPAIRED HOMEOSTASIS per A.D.A. criteria. Please note revised GLUCOSE reference range effective 2017. LAB L501.1000 7-18 mg/dL High BUN 21 LAB L501.1100 0.55-1.02 mg/dL Normal CREAT,SERUM 0.81 Result Comment: The validity of the calculated GFR AND GFRAA in patients over 70 years has not been determined. Clinical correlation is essential. LAB L501.1110 >60 mL/min Normal EST GFR 76 Result Comment: Non- GFR Calc LAB L501.1115 >60 mL/min Normal EST GFR - AA 92 Result Comment: GFR Calc LAB L501.1255 ml/min Normal Estimated CRCL 63.97 LAB L501.1300 10-20 RATIO High BUN/CRE 26.0 LAB L501.1500 6.4-8. g/dL Normal 2 T PROT 7.9 LAB L501.1800 3.2-5. g/dL Normal 0 ALB 3.6 LAB L501.1950 2.2-4. g/dL High 2 GLOB 4.3 LAB L501.2000 0.9-2. RATIO Low 4 A/G 0.8 LAB L501.2200 8.5-10 mg/dL Low .1 CA 8.4 LAB L501.4100 15-37 U/L Normal AST 15 LAB L501.4305 45-117 U/L High ALK P 119 LAB L501.4405 13-56 U/L Normal ALT 19 Result Comment: Please note revised ALT reference range effective 2017. LAB L501.4600 0.20-1.00 mg/dL Normal T BILI 0.70 LAB L501.5300 136-145 mmol/L Normal NA 142 LAB L501.5600 3.5-5.1 mmol/L Low K 3.3 LAB L501.5900 98-107 mmol/L Normal CL 105 LAB L501.6100 21.0-32.0 mmol/L Normal CO2 30.0 LAB L501.6200 5-15 Normal GAP 7 Performed By: #### L100.0100, L500.4050 #### [facility] [address] [facility]. [place], [place], [id number] CANCER ANTIGEN 125 Collected: 04/18/2017 Status: F Source: [place] 2:45 PM [facility] REPOSITORY Order Comment: Reason for Laboratory Test ROUTINE NEW PATIENT TYPE CODE TESTS RESULT OUT OF RANGE REFERENCE UNITS LAB L3100.5000 0.0-38.1 U/mL Normal CA125 11.0 2303 Result Comment: Estela ECLIA methodology Performed at: - [facility] [address] [id number] Testing Tech: Reese Cheek PhD, Phone: [phone] Performed By: #### L3100.5000 #### [facility] (refer to report for specific site) refer to report for address and phone number ONCOLOGY HISTORY AND Observed: 04/18/2017 Status: F Source: [place] PHYSICAL 2:32 PM [facility] REPOSITORY [facility] Medical Records Department [address] [place] [address] History and Physical 04/18/17 1420 MR#: [id number] Acct: [id number] Name: MELISSA ROSE Rep #: [id number] : 1955 61 From: Jimmie Suero MD PCP: DANIE GOMES Status: REG RCR Y Location: OMD - Problem List (1) Endometrium cancer Status: Chronic Subjective Date of Service:: 04/18/17 Chief Complaint: Endometrium cancer follow-up History of Present Illness: Patient is a 61-year-old female who presented in February 2015 was postmenopausal bleeding and an endometrium biopsy revealed an endometrioid adenocarcinoma FIGO grade 1 and a background of complex atypical hyperplasia. On March 19, 2016 she underwent robotic hysterectomy with bilateral salpingo-oophorectomy and SLN that revealed an endometrioid adenocarcinoma FIGO grade 1 with myometrium extension maximum depth of invasion 0.3 cm. No metastases identified in lymph nodes. She made a non-complicated recovery from her surgery which was done at [facility]. She was followed up there until September 2016 and transferring care to [facility] for convenience to residence. Her medical history is notable for morbid obesity, hypertension, dyslipidemia, GERD, chronic back pain and degenerative joint disease and gallbladder disease (asymptomatic, either calculi or disease or polyps incidentally noted on ultrasound in 2015) Power of Reading Aide: No Living Will: No Health History: Past Medical History Cancer: Uterine cancer Past Medical History (Last Updated 04/18/17 @ 14:19 by Jimmie Suero MD) Morbid obesity (Acute) Fibromyalgia (Acute) Inflammatory polyarthropathy (Acute) Uterine cancer (Acute) Hypertension (Chronic) Past Surgical History (Last Updated 04/18/17 @ 13:39 by Nisha Preston) History of tonsillectomy (Acute) History of total right knee replacement (Acute) History of appendectomy (Acute) History of hysterectomy (Acute) Allergies/Adverse Reactions: Allergy/AdvReac Type Severity Reaction Status Date / Time Home Medications Medication Instructions Recorded Risk Factors Social History Smoking Status Never smoker Tobacco Risk Data: Tobacco Risk Smoking Status Never smoker Type of tobacco: Smokeless tobacco usage: Items/Day: Year started: Years used: Counseled to quit/cut down: Reason for no counseling performed: Reason for no pharmacotherapy: Tobacco use comments: Passive smoke exposure: Yes Substance Risk Drug use: No Caffeine use [drinks/day]: 2 Alcohol use: No Type of alcohol: Drinks per day: Has patient felt the need to cut down: Has the patient been annoyed by complaints: Has the patient felt guilty about drinking: Has the patient needed an eye die technician in the mornings: Comments: Date of last colonoscopy:: 02/15/11 Date of last mammogram:: 02/16/16 Review of Systems Constitutional:: Denies: Fever, Sweats, Weight loss, Appetite change, Chills Cardiovascular:: Denies: Chest pain, Palpitations, Dyspnea on exertion, Orthopnea, PND, Shortness of breath Respiratory: Denies: Cough, Hemoptysis, Shortness of Breath, Wheezing Gastrointestinal:: Reports: Abdominal pain - Occasional right upper quadrant discomfort usually lasts minutes to hours and then resolving with analgesia. Denies: Nausea, Vomiting, Diarrhea, Constipation, Hematochezia Genitourinary: Reports: - - No abnormal vaginal bleeding. Denies: Dysuria, Hematuria, Flank pain Musculoskeletal:: Reports: Arthritis, Back pain, Arthralgia, - - Has chronic back pain, had multiple injections in the past with bobbin painter at [facility] and continues to follow up. Denies: Myalgia Skin: Denies: Rash, Skin Changes, Wounds Neurological:: Denies: Headache, Dizziness, Visual changes, Tinnitus, Hearing loss Psychiatric: Denies: Anxiety, Depression, Homicidal Ideations, Suicidal Ideations Vital Signs Height 5 ft 5.5 in Weight: 116.301 kg Weight in Pounds 256.4 lbs Pulse Ox 98 - Physical Exam General: Alert, Oriented x3, No apparent distress, - - Morbidly obese ECOG 1 HEENT: Atraumatic, PERRLA, EOMI, Normocephalic Oropharynx:: Dry mucosa Neck:: Supple, Trachea midline. Negative for: JVD, bilateral Cardiac:: Regular rate, Regular rhythm, Normal S1, Normal S2. Negative for: Murmur Lungs: Clear to auscultation, Excusion symmetrical. Negative for: Rhonchi, Wheezes Abdomen:: Soft, Non-tender, Non-distended. Negative for: Hepatosplenomegaly Extremities:: Negative for: Cyanosis, Edema Neurological: Neuro grossly intact Skin:: Negative for: Lesions, Rash, Petechiae, Ecchymosis Psychiatric:: Appropriate affect, Euthymic Lymphatics:: Negative for: Cervical lymphadenopathy, Supraclavicular lymphadenopathy, Axillary lymphadenopathy Pathology Data: Pathology reports from 2016 reviewed, summarized under HPI, to be scanned into EMR Assessment and Plan 51-year-old female with stage IA endometrial cancer status post robotic hysterectomy, BSO and SLN in March 2016 at [facility]. Patient is on surveillance with no evidence to suggest cancer recurrence. She will be followed up every 6 months for the first 3 years since diagnosis and treatment and then annual thereafter with clinical history and physical, annual CBC CMP, and CA 125 every 6 months. Referred to CERTIFIED ENERGY MANAGER locally for pelvic evaluation. Impression and plan discussed with patient Medications: Prescriptions This Visit Medication Instructions Recorded Aspirin [Aspirin EC] 81 mg PO DAILY 04/08/17 Baclofen [Lioresal] 10 mg PO TID PRN 04/08/17 Meloxicam [Mobic] 15 mg PO DAILY PRN 04/08/17 Primary Care Provider: Danie Gomes Referring Provider: 04/18/17 1432 <Electronically signed by Jimmie Suero MD> Date Jimmie Suero MD Cosigner Signature: Date (if applicable) CC: Jimmie Suero MD; DANIE GOMES Signed ALLERGIES ALLERGIES DATE TYPE / NAME / CODE REACTION SEVERITY SOURCE CODE 03/03/2018 Drug Sulfa (Sulfonamide Rash HI El Allergy/41 Antibiotics)/[id number] [facility] 8245345([facility](RXNORM) [facility]) Repository 03/03/2018 Drug adhesive/[id number](RX Rash HI [facility] Allergy/41 NORM) Community 1546153([facility]) Repository 03/03/2018 Drug latex/[id number](RXNOR Other SV El Allergy/41 M) Community 9549088([facility]) Repository 07/08/2016 [facility]4979[facility] Repository OMED CT) 06/03/2016 Drug ADHESIVE RASH Graham Class/4195 Clinic Main [address]206([facility] CT) Repository 06/03/2016 [facility]UG LATEX [facility]ASH [facility] Main 2068838([facility] OMED CT) Repository 06/03/2016 DRUG LATEX Rash Low [facility] 6065035(SN Repository OMED CT) 02/20/2016 DRUG DOXYCYCLINE Nausea [facility] INGREDI/41 Three 1191598(SN Repository OMED CT) 02/20/2016 DRUG/83291 ADHESIVE Rash Low [facility] 1003(SNOME TAPE-SILICONES Three D CT) Repository 02/18/2009 Drug SULFA (SULFONAMIDE Graham Class/4195 ANTIBIOTICS) Clinic Main [address]686(SNOM [place] ED CT) Repository 02/18/2009 Drug SULFA (SULFONAMIDE [facility] Class/4195 ANTIBIOTICS) Three 89787(SNOM Repository ED CT) Drug/65277 doxycycline [id number] Sikh 1003([facility] D CT) System Repository Drug/41437 sulfamethoxazole sulfa Sikh 1003([facility] D CT) System Repository Drug/99817 No Known Allergies Sikh 1003([facility] D CT) System Repository Environmen Latex Difficulty Sikh t/69159071 breathing [facility] 6(SNOMED System CT) Repository Drug/56471 Tape SKIN RASH Sikh 1003([facility] D CT) System Repository Drug/62174 oxyCODONE vomit Sikh 1003([facility] D CT) System Repository ENCOUNTERS ENCOUNTERS ADMIT/DISCHARGE ACCOUNT NUMBER ADMITTING ENCOUNTER LOCATION SOURCE CLASS 03/03/2018/03/03/19 [id number] Emergency [address] ding:ED Repository 02/27/2018/02/27/19 [id number] Ambulatory [address] Repository 02/13/2018/02/14/20 [id number] Ambulatory [address] ding:ENRoom: Repository AC15 02/13/2018/02/14/20 [id number] Ambulatory BMSBuilding: El 18 BMS.CF.[facility] Repository 02/02/2018/02/03/20 [id number] Ambulatory BMSBuilding: [facility] 18 BMS.[facility] Repository 01/25/2018/01/26/20 [id number] Gom[place], Ambulatory Sikh S[address] ding:.[facility] Repository 01/25/2018 [id number] Ambulatory [address] [place] [address] Repository 01/24/2018 [id number] Ambulatory [facility] ding:AshFamP Repository rac 01/24/2018/01/25/20 [id number] Gomes, Ambulatory [address] ding:AshFamP Repository racRoom: Room 2 01/13/2018/01/14/20 [id number] Gomes, Ambulatory [address] ding:[facility] Repository 01/13/2018 [id number] Ambulatory [address] [place] [address] Repository 12/16/2017/12/17/19 [id number] Ambulatory [address] Repository 12/09/2017 [id number] Ambulatory Building:[facility] Repository 12/07/2017 [id number] Ambulatory BMSBuilding: [facility] Repository 12/07/2017 [id number] Ambulatory [facility] ding:OMD Repository 11/17/2017/11/18/19 [id number] Ambulatory Building:[address] One Repository 11/17/2017 [id number] Stajacob, Ambulatory [facility] Dr[facility] Dot Valdovinos [facility] Repository 11/17/2017/11/18/19 [id number] GOMES, Ambulatory Building:[place] [address] DANIE PETER ORTHOGLESSNE Three R Repository 10/27/2017 [id number] Ambulatory [facility] ding:AshFamP Repository rac 10/27/2017/10/28/19 [id number] Gomes, [address] ding:AshFamP Repository racRoom: Room 1 08/19/2017/08/20/19 [id number] Gomes, [address] ding:[facility] Repository 08/19/2017/08/20/19 [id number] Gomes, Ambulatory [address] ding:[facility]amP Repository racRoom: Room 1 08/19/2017 [id number] Ambulatory [address] [place] [address] Repository 05/30/2017 [id number] Ambulatory BMSBuilding: El BMS.[facility] Hospital Repository 05/27/2017 [id number] Ambulatory Building:[facility] Repository 05/27/2017 [id number] [facility] Three GYRIVERRD Repository 05/23/2017/05/24/19 [id number] Newbill, Ambulatory [facility]Care[facility]in Sikh 18 [address] Juan Doherty g:QCareRoom: Regional Room 2 Health System Repository 05/11/2017/05/12/19 [id number] Arturo[facility] ding:[facility] Repository 05/05/2017/05/06/19 [id number] Arturo, Ambulatory [address] ding:[facility] BANEY Repository 05/05/2017/05/06/19 [id number] [facility] Ambulatory [address] ding:AshFamP Repository racRoom: Room 2 04/18/2017 [id number] Ambulatory BMSBuilding: [place] BMS.[facility] Repository PAYERS PAYERS ENCOUNTER GUARANTOR PAYER SUBSCRIBER SOURCE 03/03/2018 MELISSA A Primary MELISSA A [facility] [id number] TR Insurance:MEDICAL GONGWERDOB: [address] [id number] [facility] [address]Mpj: (419) Number: Repository [phone] () [id number] Date:3186-47-46HS [facility] [address] [place] [address]ZG: 03/03/2018 Secondary NOT GIVENUNK [place] Insurance:SELF PAY [facility] Number: Effective Repository Date:2018-03-03 02/13/2018 MELISSA A Primary MELISSA A El [id number] TR Insurance:MEDICAL GONGWERDOB: [address] [id number] Hospital [address]Tww: (419) Number: Repository [phone] () [id number] Date:9912-23-73CZ [address] [place] [address]PF: 02/13/2018 Secondary NOT GIVENUNK [place] Insurance:SELF PAY [facility] Hospital Number: Effective Repository Date:2018-02-02 02/13/2018 MELISSA A Primary MELISSA Gallegos [id number] TR Insurance:MEDICAL GONGWERDOB: [address] [id number] Hospital [address]Vkt: (419) Number: Repository [phone] () [id number] Date:5300-87-93OA [address] [place] [address]GY: 02/13/2018 Secondary NOT GIVENUNK El Insurance:SELF PAY [facility] Hospital Number: Effective Repository Date:2018-02-13 02/02/2018 [facility] MELISSA Gallegos [id number] TR Insurance:MEDICAL GONGWERDOB: [address] [id number] Hospital [address]Vcw: (419) Number: Repository [phone] () [id number] Date:9988-55-59CC [address] [address]UN: 02/02/2018 Secondary NOT GIVENUNK [place] Insurance:SELF PAY [facility] Hospital Number: Effective Repository Date:2018-01-26 01/25/2018 [facility] Sikh GONGWERDOB: Insurance:Medical GONGWERDOB: [facility] [id number] [facility] Number: [id number] System [facility] [address] Effective [facility] [address] Repository [address] [place] [address] Date:2018-01-[address] [place] [address]Sgk: 1207-33-70Lyws [address]Tag: Name:Elodia Thomas () [address] [place] [address] ()Tel: [phone]: () [phone] 01/25/2018 [facility]:Medical GONGWERDOB: [facility] [id number] Repository [facility] [address] Number: [facility] [address] [address], [place] [id number] [address], [place] [id number]: Date:Plan Name:Health [id number]: () () 01/25/2018 [facility] Insurance:Medical GONGWERDOB: [facility] [id number] Repository Number: [facility] [address] [id number] [address], [place] Date:Plan Name:Health [id number]: () 01/24/2018 [facility] Insurance:1500 GONWERDOB: [facility] [id number] System [facility] [address] Number: Effective [facility] [address] Repository [address], [place] Date:2018-01-24 - [place] [address]Pjh: [id number] [address]Lwz: Name:CD:[id number] O () [address] [place] [address] ()Tel: [phone]: () [phone] 01/24/2018 [facility] GONWERDOB: Insurance:1500 GONGWERDOB: [facility] [id number] System [facility] [address] Number: Effective [facility] [address] Repository [address], [place] Date:2018-01-24 - [place] [address]Hnz: 4215-70-35Qeln [address]Zwo: Name:CD:[id number] O () [address] [place] [address] ()Tel: [phone]: () [phone] 01/13/2018 [facility] GONWERDOB: Insurance:Medical [facility]: [facility] Number: [id number] System [facility] [address] Effective [facility] [address] Repository [place], [place] Date:2017-12-28 - [place] [address]Mqg: 8519-10-50Pqmz [phone]: Name:[facility] () [address], [place] ()Tel: [phone]: (WP) [phone] 01/13/2018 [facility] Insurance:[facility] [id number] Repository [facility] [address] Number: [facility] [address] [address], [place] [id number] [address], [place] [id number]: Date:Plan Name:Health [id number]: () () 01/13/2018 [facility] Insurance:Medical [facility] [id number] Repository Number: [facility] [address] [id number] [address], [place] Date:Plan Name:Health [id number]: () 12/09/2017 [facility] [place] Number: [id number] Becky [facility] [address] [id number] [facility] Center [address], [place] Date:3908-33-85Oeyt [place], [place] Repository [address]Oey: 419) Name:MANAGED CARE [address]Kiq: (HP) [phone] () 12/07/2017 MELISSA A Primary MELISSA A [place] [id number] TR Insurance:MEDICAL GONGWERDOB: [address] [id number] Hospital [address]Jlt: (419) Number: Repository [phone] () [id number] Date:2091-35-90QU [address] [place] [address]QK: 12/07/2017 Secondary NOT GIVENUNK [place] Insurance:SELF PAY [facility] Number: Effective Repository Date:2017-12-07 12/07/2017 MELISSA A Primary MELISSA A [place] [id number] TR Insurance:MEDICAL GONGWERDOB: [address] [id number] Hospital [address]Zpv: (419) Number: Repository [phone] () [id number] Date:3291-09-92LR [address] [place] [address]ES: 12/07/2017 Secondary NOT GIVENUNK El Insurance:SELF PAY [facility] Number: Effective Repository Date:2017-04-06 11/17/2017 Primary [facility] Insurance:Medical GONGWERDOB: [facility] [id number] [facility] Number: [place], [place] Repository [id number] [address]Imr: (419) Date:Plan Name:Health [phone] () 11/17/2017 MELISSA A Primary [facility] GONGWERDOB: Insurance:MMOPolicy GONGWERDOB: [facility] Repository Number: [id number] [facility] [id number] [address], [address], [place] Date:6690-72-99[place] [address]Jou: (313) [place], [place] [phone] () [address]BK: 10/27/2017 MELISSA A Primary MLEISSA A Sikh GONLaurenWERDOB: Insurance:1500 [facility]: [facility] MEDICAL MUTUALPolicy [id number] System [facility] Number: Effective [address] Repository [place], [place] Date:2017-10-[place] [id number]: [id number] [id number]: Name:CD:[id number] O () [address] [place] [address] ()Tel: [phone]: (WP) [phone] 10/27/2017 MELISSA A Primary MELISSA Jarquin GONBEVERLYDOB: Insurance:1500 [facility]: [facility] MEDICAL MUTUALPolicy [id number] System [facility] Number: Effective [facility] Repository [place], [place] Date:2017-08-19[place] [id number]: 4940-59-17Oimf [id number]: Name:CD:[id number] O () [address] [place] [address] ()Tel: [phone]: (WP) [phone] 08/19/2017 MELISSA A Primary MELISSA Jarquin GONMARIMRADOB: Insurance:Medical [facility]: [facility] MutualPolicy Number: [id number] System [facility] Effective [facility] Repository [place], [place] Date:2017-08-1911[place] [id number]: [id number] [id number]: Name:Medical [facility] () [address] [place] [address] ()Tel: [phone]: (WP) [phone] 08/19/2017 MELISSA A Primary MELISSAJosh Jarquin [facility]STITUTEDOB: Insurance:[facility] GONWERDOB: [facility] [id number] System [facility] Number: Effective [facility] [address] Repository [address], [place] Date:2017-08-09 - [facility], [place] [id number]: 9900-82-36Vcxp [id number]: Name::[id number] () [address] [place] [address] ()Tel: [phone]: (wp) [phone] 08/19/2017 [facility] Insurance:Medical GONWERDOB: [facility] [id number] Repository [facility] [address] Number: [facility] [address] [place]EN [place], [place] [id number] [address] [place] [id number]: Date:Plan Name:[facility] [phone]: () () 08/19/2017 Secondary [facility] Insurance:Medical GONWERDOB: [facility] [id number] Repository Number: [facility]ALTH SYSTEM [id number] [address], [place] Date:Plan Name:[facility] [id number]: () 05/30/2017 MELISSA A Primary [place]ELISSA A [place] [address] [place] Insurance:MEDICAL GONWERDOB: [address] [id number] Hospital [address]Yvw: Number: Repository [phone] [id number] -2 () Date:3624-11-87WZ [address] [place] [address]FK: 05/30/2017 Secondary NOT GIVENUNK El Insurance:SELF PAY [facility] Hospital Number: Effective Repository Date:2017-04-18 05/27/2017 MELISSA A Primary MELISSA A [place] [employer] GONGWERDOB: Insurance:[facility] [place]: [place] Number: [id number] [address] [id number] [facility] Center [place], [place] Date:1566-62-64Lcac [place], [place] Repository [address]Qtw: 419) Name:MANAGED CARE [address]Bhz: () [phone] () 05/27/2017 MELISSA A Primary [facility] GONGWERDOB: Insurance:[facility]: [facility] Repository Number: [id number] [facility] [address] [id number] [facility] [address] [address], [address], [place] Date:9381-82-04[place] [address]Uyp: (308) [place], [place] [phone] () [address]TB: 05/23/2017 MELISSA A Primary MELISSA A Sikh GONGWERDOB: Insurance:[address] [place], [place] [address]WERDOB: [facility] MEDICAL CASPIANPolicy [id number] Number: Effective [address] Repository [place], [place] Date:2017-05-23[place], [place] [id number]: 3853-27-24Gofx [id number]: Name:CD:[id number] O () [address] [place] [address] ()Tel: [phone]: (wp) [phone] 05/11/2017 MELISSA A Primary MELISSA A Sikh GONWERDOB: Insurance:Medical GONGWERDOB: [facility] ChilmarkPolicy Number: [id number] [address] Effective [address] Repository [place], [place] Date:2017-05-060[place], [place] [id number]: [id number] [id number]: Name:Medical MutualPO () [address] [place] [address] ()Tel: [phone]: (WP) [phone] 05/05/2017 MELISSA A Primary MELISSA A Sikh GONGWERDOB: Insurance:Medical GONGWERDOB: [facility] ChilmarkPolicy Number: [id number] System [facility] Effective [facility] Repository [address] [place] [address] Date:2017-05-05 - [address] [place] [id number]: [id number] [id number]: Name:Medical MutualPO () [address] [place] [address] ()Tel: [phone]: () [phone] 05/05/2017 MELISSA A Primary MELISSA A Sikh GONWERDOB: Insurance:1500 GONGWERDOB: [facility] [id number] System [facility]ALTH [facility] Number: Effective [facility] Repository [address] [place] [address] Date:2017-05-[address] [place] [address] [id number]: [id number] [id number]: Name:CD:[id number] O () [address] [place] [address] ()Tel: [phone]: [phone] 04/18/2017 MEILSSA A Primary MELISSA A Hodgen [id number] Insurance:MEDICAL GONGWERDOB: [address] [id number] [address]Ctt: Number: Repository [phone] [id number] -2 () Date:[id number] [address] [place] [id number]: 04/18/2017 Secondary NOT GIVENUNK El Insurance:SELF PAY [facility] Number: Effective Repository Date:2017-04-18
== END 2018-03-03 16:15 | disposition home or self-care (01) ==
PROVIDERS: Emergency Provider Emergency Medicine; Family Provider Family Medicine; PCP Family Medicine
DX: I49.1 Atrial premature depolarization (principal); R00.2 Palpitations; I10 Essential (primary) hypertension; Z79.82 Long term (current) use of aspirin; Z79.899 Other long term (current) drug therapy
CPT/HCPCS: 71045; 80048; 84484; 85025; 93005; 99284; A4216

== ENCOUNTER 2018-05-16 08:53 | Day surgery (SDC) | payer OTHER, SELFPAY ==
[2018-04-19 12:53] VITALS: BMI 41.3
[2018-05-16] VITALS (8 sets, daily range): BP systolic 125–171; BP diastolic 73–98; PULSE 76–84; RESP 16–20; TEMP 36.1–36.6; O2SAT 90–100; BMI 42.3
--- NOTE | 2018-05-16 | GALL_PTH ---
PATIENT: CHULA ROSE LOC: [facility] – [place] U#:[id number] AGE/SX: 62/F ROOM: RE05/16/[address]: Dr. Haja Young MD : [id number] BED: DIS: 05/16/2018 SPEC #: [id number] RECD: 05/16/18 13:43 STATUS: ELIEZER RERobert #: [id number] CHUN: 05/16/18 00:[address]: Haja Young DEPT: SURGICAL PATHOLOGY RECD BY: Severiano Sandoval ENTERED: 05/16/18 13:43 SP TYPE: TEODORO JOHNSON DR: Dr. Papi Catalan MD Tissues: Gallbladder, NOS Procedures: Surgery Specimen Level III HEADER OPERATION: Laparoscopic cholecystectomy PRE-OP DIAGNOSIS: Polyp of gallbladder, right upper quadrant pain TISSUE SUBMITTED: Gallbladder MICROSCOPIC DIAGNOSIS Gallbladder, cholecystectomy: Mild chronic cholecystitis and cholesterolosis. No stones are identified in the container or in the gallbladder. See comment. KAJAL:shane 05/17/18 COMMENT The polypoid lesions are consistent with cholesterolosis. MICROSCOPIC DESCRIPTION Slides are reviewed. GROSS DESCRIPTION Received is one container labeled with the patient's name and designated gallbladder. The specimen consists of a gallbladder measuring 10 cm in length and up to 4 cm in diameter. The external surface is pink-bassett, smooth and glistening for the most part. Focally it is granular, hemorrhagic and contains cautery artifact. The gallbladder contains green-yellow mucoid bile and contains multiple, detached yellowish polypoid pieces measuring 0.1 to 0.3 cm in greatest dimension. No stones are identified in the container or in the gallbladder. The gallbladder wall also shows several yellowish polypoid lesions consistent with cholesterosis measuring 0.2 to 0.4 cm in greatest dimension. The gallbladder wall measures up to 0.2 cm in thickness. Bloom Conveyor Operator sections from the gallbladder and the cystic duct are submitted in one cassette. The entire polypoid lesions are submitted. / KAJAL:shane 05/16/18 TC:3 CPT: 02521
--- NOTE | 2018-05-16 09:04 | EKG12_ITS ---
Test Reason : PRE-OP Blood Pressure : / mmHG Vent. Rate : 076 BPM Atrial Rate : 076 BPM P-R Int : 150 ms QRS Dur : 078 ms QT Int : 404 ms P-R-T Axes : 043 003 027 degrees QTc Int : 454 ms Normal sinus rhythm Normal ECG When compared with ECG of 03-MAR-2018 14:59, Premature atrial complexes are no longer Present Confirmed by ALEXEY ESPINO, YOAN ([id number]), writer editor PRITI MOREL ([id number]) on 05/22/2018 1:35:02 PM Referred By: Haja Young Confirmed By:YOAN BLACKBURN MD
[2018-05-16] MEDS: Cefazolin 2 GM in 0.9% Normal Saline 100 ML IV (10:55)
--- NOTE | 2018-05-16 11:08 | PCM.OPRPT ---
Problem List (1) Polyp of gallbladder Status: Acute (2) Right upper quadrant pain Status: Acute Report of Operation Date of Procedure: 05/16/18 Pre-Operative Diagnosis: 1. Polyp of the gallbladder. 2. Right upper quadrant abdominal pain Post-Operative Diagnosis: Same Surgery/Procedure Performed:: Laparoscopic cholecystectomy Type of Anesthesia:: General Anesthesiologist: Thanh Peterson Specimen's removed: Gallbladder Drains: None Estimated Blood Loss (mL): < 25 cc Description of Procedure: Patient was brought into the operating room. Placed in the supine position. Under excellent general trach intubation the abdomen was sterilely prepped draped in usual fashion. Local was injected if umbilically. Dissection was carried down to the fascia. Fascia was grasped with a Cecile. Varies needle was placed inside the abdomen. The abdomen was insufflated 15 torr. A 10/12 trocar was placed without difficulty. Patient was placed in the head up and rotated to the left position. A subxiphoid #5 trocar was placed, inferior to this another 5 trocar was placed, laterally a #5 trocar was placed. All these under direct visualization without injury to underlying structures. Fundus of the gallbladder was grasped retracted in cephalad direction. Infundibulum was grasped retracted laterally. I dissected out the cystic duct cystic artery and posterior triangle. I placed hemoclips proximally and distally on the duct ligated the duct and placed hemoclips proximally distally on the artery and ligated the artery. I deliver the gallbladder from the gallbladder bed with use of electrocautery had no spillage of bile or stones are placed a specimen specimen bag. Remove the specimen from the umbilical port without difficulty. I reinflated the abdomen. I inspected the right upper quadrant good hemostasis was noted. I removed the trochars under direct visualization. Good hemostasis was noted. Close the fascia the umbilical port [id number]-im-[id number] stitch of 0 Vicryl. Skin incisions were closed with septicum stitches of 4-0 Monocryl. Steri-Strips were applied. Sterile dressings were applied. The patient tolerated the procedure well. - Admit VTE Documentation VTE Present on Admission: No VTE Mechan Device Prophylaxis: SCD's VTE Pharm Prophylaxis ordered?: No Reason prophylaxis not ordered:: Treatment Not Indicated
--- NOTE | 2018-05-16 11:38 | DCINST_ITS ---
Discharge Diet: Light diet - advance as tolerated Discharge Activity: May Not Drive - for 2-3 days or while taking narcotic pain medications., - - Do not drive, work heavy equipment or sign legal documents for 24 hours. May shower in (days): 1 - with the bandage in place. Additional Activity Instructions:: Pain medication may cause nausea. You should typically eat light foods as you take your pain medications. Pain medication may also cause constipation. If this is a problem for you, please discuss with your doctor. Call your doctor if your incision/area has: Continuous Slow Oozing, Sudden Increased Bleeding, Increased Pain/ Swelling, Increased Redness, Foul Smelling Discharge Call your doctor if you observe: Fever of 101 or Higher Suture Line Care: Avoid Pulling/Pushing, Avoid Pinching/Bending Additional Dressing/Incision Instructions:: Leave operative bandaids on for 2 days. When you remove dressing, leave Steri-Strips on until your follow-up appointment, or until the Steri-Strips fall off on their own. Allergies/Adverse Reactions: Allergies latex Allergy (Severe, Verified 05/16/18 09:32) Other difficulty breathing - nose stuffy Sulfa (Sulfonamide Antibiotics) Allergy (Mild, Verified 05/16/18 09:32) Rash oxycodone Adverse Reaction (Severe, Verified 05/16/18 09:32) Nausea/Vom/Diarrhea SEVERE DIZZINESS adhesive Adverse Reaction (Mild, Verified 05/16/18 09:32) Rash Medications to take at Discharge Lisinopril [Zestril] 12.5 mg PO DAILY 05/05/15 Aspirin [Aspirin EC] 81 mg PO DAILY 04/08/17 Baclofen [Lioresal] 10 mg PO TID PRN 04/08/17 Meloxicam [Mobic] 15 mg PO DAILY PRN 04/08/17 cholecalciferol (vitamin D3) 50,000 unit capsule 50,000 unit PO QWEEK 02/02/18 gabapentin 100 mg capsule 300 mg PO BID cap 02/02/18 Esomeprazole Mag Trihydrate [Nexium] 20 mg PO PRN PRN 02/09/18 Sucralfate [Carafate] 1 gm PO DAILY PRN 02/09/18 nystatin 100,000 unit/gram topical powder 1 applic TOPICAL BID #60 g 04/19/18 Hydrocodone Bitart/Apap 5-325 [[place] 5MG-325MG] 1 - 2 tab PO Q4H PRN PRN 6 Days #30 tab 05/16/18 The following prescriptions were given: Hydrocodone Bitart/Apap 5-325 [[place] 5MG-325MG] 1 - 2 tab PO Q4H PRN PRN 6 Days #30 tab PRN Reason: Pain Primary Care Physician: Papi Catalan MD [Primary Care Provider] - Test Results: Test results from this visit will be discussed in further detail at your follow- up appointment, if applicable. Please Follow Up With: Haja Young MD - Please call [phone] to schedule an appointment. When: 7 days after your surgery.
[2018-05-16] MEDS: Bupivacaine Mpf 0.5% 30 ML VIAL (11:39)
[2018-05-16] MEDS: HYDROcodone Bitartrate/Apap 5/325 Tablet PO (13:54)
== END 2018-05-16 16:28 | disposition home or self-care (01) ==
LOC: SDC 08:56 → AC 08:57
PROVIDERS: Family Provider Family Medicine; PCP Family Medicine; Referring Provider Surgery; Visit Provider Surgery
PROC: (CPT 47562; principal; 2018-05-16 10:40)
DX: K81.1 Chronic cholecystitis (principal); M79.7 Fibromyalgia; M06.4 Inflammatory polyarthropathy; I10 Essential (primary) hypertension; K21.9 Gastro-esophageal reflux disease without esophagitis; J45.909 Unspecified asthma, uncomplicated; E66.01 Morbid (severe) obesity due to excess calories; Z68.41 Body mass index [BMI] 40.0-44.9, adult; Z85.42 Personal history of malignant neoplasm of other parts of uterus; Z79.82 Long term (current) use of aspirin; Z79.1 Long term (current) use of non-steroidal anti-inflammatories (NSAID); Z79.899 Other long term (current) drug therapy
CPT/HCPCS: 47562; 88304; 93005; J7120; J2405

== ENCOUNTER → 2018-06-22 16:36 | Outpatient (CLI) | payer MEDICARE, OTHER, SELFPAY ==
[2018-06-22 11:25] VITALS: BMI 42.3
== END ==
PROVIDERS: Family Provider Family Medicine; PCP Family Medicine; Referring Provider Obstetrics & Gynecology; Visit Provider Obstetrics & Gynecology
DX: R10.11 Right upper quadrant pain (principal)
CPT/HCPCS: 87086; 87088